=== PATIENT | male | born 1970 | race Caucasian/White ===

== ENCOUNTER 2016-02-26 14:22 | Emergency (ER) | payer OTHER ==
[2016-02-26 15:21] VITALS: BP 129/83
--- NOTE | 2016-02-26 15:42 | UC ---
Throat Pain/Nasal Jam HPI - HPI Summary HPI Summary: This is a 46 yo male with a h/o HTN and Hep C who presents with complaints of a ST x 3d. He was treated for an acute bronchitis with a Zpak. Symptoms resolved spontaneously. He has been able swallow. No assoc cough or SOB. No abdominal pain, n/v. No fevers. - History of Current Complaint Chief Complaint: UCGeneralIllness Stated Complaint: THROAT PAIN - Allergies/Home Medications Allergies/Adverse Reactions: Allergies Allergy/AdvReac Type Severity Reaction Status Date / Time Interferons Allergy Severe Difficulty Verified 02/26/16 15:14 Breathing/Wheezing PMH/Surg Hx/FS Hx/Imm Hx Endocrine History Of: Denies: Diabetes Cardiovascular History Of: Reports: Hypertension Denies: Congestive Heart Failure Respiratory History Of: Reports: Asthma Other History Of: Hepatitis C - Surgical History Surgical History: Yes Surgery Procedure, Year, and Place: hernia - Family History Known Family History: Negative: Hypertension, Diabetes - Social History Alcohol Use: None Alcohol Amount: recovering alcoholic since 2008 Substance Use Type: None Smoking Status (MU): Former Smoker Type: eCigarettes When Did the Patient Quit Smoking/Using Tobacco: 09/2014 Review of Systems Constitutional: Negative Skin: Negative Eyes: Negative ENT: Sore Throat Respiratory: Negative Cardiovascular: Negative Gastrointestinal: Negative Genitourinary: Negative Motor: Negative Neurovascular: Negative Musculoskeletal: Negative Neurological: Negative Psychological: Negative All Other Systems Reviewed And Are Negative: Yes Physical Exam Triage Information Reviewed: Yes Appearance: Well-Appearing Vital Signs: Initial Vital Signs Temp 97.7 F 02/26/16 15:16 Pulse 69 02/26/16 15:16 Resp 18 02/26/16 15:16 BP 129/83 02/26/16 15:16 Pulse Ox 97 02/26/16 15:16 Vital Signs Reviewed: Yes ENT Exam: Normal ENT: Positive: Normal ENT inspection, Pharynx normal, TMs normal. Negative: Pharyngeal erythema Neck: Positive: Enlarged Nodes @ - mildly enlarged submandibular lymph nodes Respiratory: Positive: Lungs clear, Normal breath sounds Cardiovascular: Positive: RRR, No Murmur Throat Pain/Nasal Course/Dx - Course Course Of Treatment: Patient has a benign exam. Likely represents a viral pharyngitis. Recommend symptomatic treatment. - Differential Dx/Diagnosis Differential Diagnosis/HQI/PQRI: Laryngitis, Pharyngitis, Tonsillitis, URI Provider Diagnoses: 1. Viral pharyngitis Discharge - Discharge Plan Condition: Stable Disposition: HOME Patient Education Materials: Pharyngitis (ED) Referrals: Terence Carlson MD [Primary Care Provider] - If Needed Additional Instructions: Activity: As tolerated Instructions: 1. This appears to be a viral process, antibiotics are not necessary 2. Use throat lozenges and gargle with salt water to help with the pain
== END 2016-02-26 16:06 | disposition home or self-care (01) ==
LOC: UCEAST 14:22
DX: J02.9 Acute pharyngitis, unspecified (principal); Z87.891 Personal history of nicotine dependence
CPT/HCPCS: 99212; G0463

== ENCOUNTER 2017-05-08 15:24 | Emergency (ER) | payer OTHER ==
[2017-05-08] MEDS ORDERED: Ondansetron INJ* 2 MG/ML VIAL IV ONE (16:43)
[2017-05-08] MEDS ORDERED: Morphine INJ* 4 MG/ML 1 ML CARPUJECT IV ONE (16:43)
[2017-05-08] MEDS ORDERED: Morphine INJ* 4 MG/ML 1 ML SYRINGE (NEW SYRINGE VERSION) ONE (16:49)
[2017-05-08] MEDS ORDERED: Morphine INJ* 4 MG/ML 1 ML SYRINGE (NEW SYRINGE VERSION) IV ONE (16:50)
[2017-05-08 16:51] LABS: ABS Basophils 0.1 10^3/ul (0-0.2); ABS Eosinophils 0.1 10^3/ul (0-0.6); ABS Lymphocytes 1.7 10^3/ul (1.0-4.8); ABS Monocytes 0.6 10^3/ul (0-0.8); ABS Neutrophils 7.1 10^3/ul (1.5-7.7); ABS Nucleated RBC 0 10^3/ul; Eosinophil % 0.6 % (0-6); Hematocrit 43 % (42-52); Hemoglobin 15.2 g/dl (14.0-18.0); Mean Corpuscular HGB Conc 35 g/dl (31-36); Mean Corpuscular Hemoglobin 29 pg (27-31); Mean Corpuscular Volume 84 fL (80-94); Mean Platelet Volume 7.9 um3 (7.4-10.4); Nucleated Red Blood Cells % 0.1; Platelet Count 227 10^3/ul (150-450); Red Blood Count 5.17 10^6/ul (4.0-5.4); Red Cell Distribution Width 14 % (10.5-15); White Blood Count 9.5 10^3/ul (3.5-10.8)
[2017-05-08 16:53] LABS: Urine Appearance Clear; Urine Blood Negative (Negative); Urine Color Straw; Urine Ketones Negative (Negative); Urine Protein Negative (Negative); Urine Specific Gravity 1.003 (1.010-1.030); Urine Urobilinogen Negative (Negative)
[2017-05-08 17:17] LABS: EGFR Non-African American 97.9 (>60)
[2017-05-08] MEDS ORDERED: Iohexol 350* (CONTRAST) 500 ML MDV IV ONE (17:36)
--- NOTE | 2017-05-08 17:36 | ED ---
Abdominal Pain/Male - HPI Summary HPI Summary: Patient is a 47-year-old male presenting to the ED with the chief complaint of tentative 10 severe abdominal pain which has been present 5 months. The area of concern is the upper middle quadrant, sparing the epigastric region and radiating diffusely to the bilateral lower quadrants with one episode of radiating to the chest and neck. History of high blood pressure. History of psych issues per patient. Takes BP medications and omeprazole daily. Endorses pain discretely over the area of a hernia repair 14 years ago. States the pain feels similar. Endorses constipation and nausea, denies vomiting or diarrhea. Denies any fevers, sweats, chills. Denies any heart palpitations or chest pain. Denies any upper back pain. Endorses pain to the bilateral kidneys , but denies any history of UTI or kidney stones. Endorses pain with urination which is intermittently and described as a burning sensation. Patient is a smoker. Previous EtOH abuse, last use 10 years ago. History of liver function disorder. - History of Current Complaint Chief Complaint: EDAbdPain Stated Complaint: ABD PAIN Time Seen by Provider: 05/08/17 16:08 Hx Obtained From: Patient Onset/Duration: Gradual Onset Timing: Constant Severity Initially: Moderate Severity Currently: Moderate Pain Intensity: 10 Pain Scale Used: 0-10 Numeric Location: Umbilical, Other - middle upper quadrant Radiates: No Aggravating Factor(s): Nothing Alleviating Factor(s): Nothing Associated Signs And Symptoms: Positive: Negative - Risk Factors Testicular Torsion: Negative Cardiac Risk Factors: Hypertension, Smoking - Allergies/Home Medications Allergies/Adverse Reactions: Allergies Allergy/AdvReac Type Severity Reaction Status Date / Time Interferons Allergy Difficulty Verified 05/08/17 15:34 Breathing/Wheezing PMH/Surg Hx/FS Hx/Imm Hx Previously Healthy: Yes Endocrine/Hematology History: Denies: Hx Diabetes Cardiovascular History: Reports: Hx Hypertension Denies: Hx Congestive Heart Failure Respiratory History: Reports: Hx Asthma - Surgical History Surgery Procedure, Year, and Place: hernia - Immunization History Hx Pertussis Vaccination: No Immunizations Up to Date: No Infectious Disease History: No Infectious Disease History: Reports: Hx Hepatitis - Hep C Denies: Traveled Outside the [place] in Last 30 Days - Family History Known Family History: Negative: Hypertension, Diabetes - Social History Occupation: Employed Full-time Lives: With Family Alcohol Use: None Alcohol Amount: Hx of EtOH Hx Substance Use: Yes Substance Use Type: Reports: Marijuana Hx Tobacco Use: Yes Smoking Status (MU): Current Every Day Smoker Type: eCigarettes Review of Systems Constitutional: Negative Negative: Fever, Chills, Fatigue Eyes: Negative Cardiovascular: Negative Negative: Shortness Of Breath, Cough Positive: Abdominal Pain, Nausea Positive: no symptoms reported, see HPI Negative: Arthralgia, Myalgia Neurological: Negative Positive: Anxious, Other - feels "losing my mind" sometimes - think i have "schizo" All Other Systems Reviewed And Are Negative: Yes Physical Exam Triage Information Reviewed: Yes Vital Signs On Initial Exam: Initial Vitals Temp Pulse Resp BP Pulse Ox 98.6 F 83 16 149/95 96 05/08/17 15:30 05/08/17 15:30 05/08/17 15:30 05/08/17 15:30 05/08/17 15:30 Vital Signs Reviewed: Yes Appearance: Positive: Well-Appearing, Well-Nourished Skin: Positive: Warm, Skin Color Reflects Adequate Perfusion Head/Face: Positive: Normal Head/Face Inspection Neck: Positive: Supple, No Lymphadenopathy Respiratory/Lung Sounds: Positive: Clear to Auscultation, Breath Sounds Present Cardiovascular: Positive: RRR, Pulses are Symmetrical in both Upper and Lower Extremities Abdomen Description: Positive: Other: - no masses present, no hernias present, pain discretely located over the middle upper quadrant. Negative: CVA Tenderness (R), CVA Tenderness (L), Hernia @, McBurney's Point Tenderness, Peritoneal Signs, Pulsatile Mass Musculoskeletal: Positive: Normal, Strength/ROM Intact Neurological: Positive: Speech Normal Psychiatric: Positive: Anxious AVPU Assessment: Alert Diagnostics - Vital Signs Vital Signs Temp Pulse Resp BP Pulse Ox 05/08/17 16:52 15 05/08/17 15:30 98.6 F 83 16 149/95 96 - Laboratory Lab Results: Lab Results 05/08/17 05/08/17 05/08/17 Range/Units 16:30 16:30 16:30 WBC 9.5 (3.5-10.8) 10^3/ul RBC 5.17 (4.0-5.4) 10^6/ul Hgb 15.2 (14.0-18.0) g/dl Hct 43 (42-52) % MCV 84 (80-94) fL MCH 29 (27-31) pg MCHC 35 (31-36) g/dl RDW 14 (10.5-15) % Plt Count 227 (150-450) 10^3/ul MPV 7.9 (7.4-10.4) um3 Neut % (Auto) 73.9 (38-83) % Lymph % (Auto) 18.0 L (25-47) % [place] % (Auto) 6.7 (0-7) % Eos % (Auto) 0.6 (0-6) % Baso % (Auto) 0.8 (0-2) % Absolute Neuts (auto) 7.1 (1.5-7.7) 10^3/ul Absolute Lymphs (auto) 1.7 (1.0-4.8) 10^3/ul Absolute Monos (auto) 0.6 (0-0.8) 10^3/ul Absolute Eos (auto) 0.1 (0-0.6) 10^3/ul Absolute Basos (auto) 0.1 (0-0.2) 10^3/ul Absolute Nucleated RBC 0 10^3/ul Nucleated RBC % 0.1 Sodium 139 (139-145) mmol/L Potassium 3.3 L (3.5-5.0) mmol/L Chloride 102 (101-111) mmol/L Carbon Dioxide 28 (22-32) mmol/L Anion Gap 9 (2-11) mmol/L BUN 7 (6-24) mg/dL Creatinine 0.84 (0.67-1.17) mg/dL Est GFR ( Amer) 126.0 (>60) Est GFR (Non-Af Amer) 97.9 (>60) BUN/Creatinine Ratio 8.3 (8-20) Glucose 100 (70-100) mg/dL Lactic Acid 1.2 (0.5-2.0) mmol/L Calcium 9.6 (8.6-10.3) mg/dL Total Bilirubin 0.60 (0.2-1.0) mg/dL AST 22 (13-39) U/L ALT 13 (7-52) U/L Alkaline Phosphatase 57 (34-104) U/L Troponin I 0.05 H* (<0.04) ng/mL C-Reactive Protein 13.53 H (< 5.00) mg/L Total Protein 7.5 (6.4-8.9) g/dL Albumin 4.2 (3.2-5.2) g/dL Globulin 3.3 (2-4) g/dL Albumin/Globulin Ratio 1.3 (1-3) Lipase 38 (11.0-82.0) U/L Urine Color Urine Appearance Urine pH (5-9) Ur Specific [place] (1.010-1.030) Urine Protein (Negative) Urine Ketones (Negative) Urine Blood (Negative) Urine Nitrate (Negative) Urine Bilirubin (Negative) Urine Urobilinogen (Negative) Ur Leukocyte Esterase (Negative) Urine Glucose (Negative) 05/08/17 Range/Units 16:30 WBC (3.5-10.8) 10^3/ul RBC (4.0-5.4) 10^6/ul Hgb (14.0-18.0) g/dl Hct (42-52) % MCV (80-94) fL MCH (27-31) pg MCHC (31-36) g/dl RDW (10.5-15) % Plt Count (150-450) 10^3/ul MPV (7.4-10.4) um3 Neut % (Auto) (38-83) % Lymph % (Auto) (25-47) % [place] % (Auto) (0-7) % Eos % (Auto) (0-6) % Baso % (Auto) (0-2) % Absolute Neuts (auto) (1.5-7.7) 10^3/ul Absolute Lymphs (auto) (1.0-4.8) 10^3/ul Absolute Monos (auto) (0-0.8) 10^3/ul Absolute Eos (auto) (0-0.6) 10^3/ul Absolute Basos (auto) (0-0.2) 10^3/ul Absolute Nucleated RBC 10^3/ul Nucleated RBC % Sodium (139-145) mmol/L Potassium (3.5-5.0) mmol/L Chloride (101-111) mmol/L Carbon Dioxide (22-32) mmol/L Anion Gap (2-11) mmol/L BUN (6-24) mg/dL Creatinine (0.67-1.17) mg/dL Est GFR ( Amer) (>60) Est GFR (Non-Af Amer) (>60) BUN/Creatinine Ratio (8-20) Glucose (70-100) mg/dL Lactic Acid (0.5-2.0) mmol/L Calcium (8.6-10.3) mg/dL Total Bilirubin (0.2-1.0) mg/dL AST (13-39) U/L ALT (7-52) U/L Alkaline Phosphatase (34-104) U/L Troponin I (<0.04) ng/mL C-Reactive Protein (< 5.00) mg/L Total Protein (6.4-8.9) g/dL Albumin (3.2-5.2) g/dL Globulin (2-4) g/dL Albumin/Globulin Ratio (1-3) Lipase (11.0-82.0) U/L Urine Color Straw Urine Appearance Clear Urine pH 7.0 (5-9) Ur Specific [place] 1.003 L (1.010-1.030) Urine Protein Negative (Negative) Urine Ketones Negative (Negative) Urine Blood Negative (Negative) Urine Nitrate Negative (Negative) Urine Bilirubin Negative (Negative) Urine Urobilinogen Negative (Negative) Ur Leukocyte Esterase Negative (Negative) Urine Glucose Negative (Negative) Result Diagrams: 05/08/17 16:30 05/08/17 16:30 Lab Statement: Any lab studies that have been ordered have been reviewed, and results considered in the medical decision making process. Abdominal Pain Fem Course/Dx - Course Course Of Treatment: Patient is evaluated for abdominal pain. He endorses pain into the middle upper quadrant 5 months which is been intermittent. He endorses constipation. He states he has had one episode of pain today with the pain radiated through the chest and up into the neck describing it as a "tearing " sensation. Vital signs are stable on arrival. Troponin is 0.05, this is never been high in his previous visits. I have discussed this with Dr. Denton who suggests a CTA alongside his CT abdomen/pelvis contrasted image to assess for hernia or mesh disruption. He is given Zofran and morphine with relief. Hernia repaired 14 years ago and has remained asymptomatic until 5 months ago. IMPRESSION: 1. No aortic aneurysm or evidence of acute aortic dissection. 2. No centrilobular pulmonary embolism. The more distal segmental pulmonary arteries are. less reliably evaluated due to image timing. 3. Appearance of the liver is compatible with cirrhosis. I discussed these findings with the patient. I have advised him to follow-up with GI, although I do not have a clear explanation for his pain. I've advised him to take Senokot and/or MiraLAX for his constipation symptoms. On recheck of his troponin, 0.00. Also EKG obtained which shows sinus bradycardia. I am not concerned with a PE as patient is not tachycardic, diaphoretic, and has low risk factors other than smoking history. I have given him strict return precautions and he understands these as it is explained to him. He voices no concerns at this time and will follow-up GI. - Diagnoses Differential Diagnosis/HQI/PQRI: Constipation Provider Diagnoses: Abdominal pain Discharge - Sign-Out/Discharge Documenting (check all that apply): Discharge - Discharge Plan Condition: Stable Disposition: HOME Patient Education Materials: Acute Abdominal Pain (ED) Referrals: Nba Shi MD [Medical Doctor] - Terence Carlson MD [Primary Care Provider] - Additional Instructions: Please follow up with Dr. Shi If symptoms worsen, return to the ED - Billing Disposition and Condition Condition: STABLE Disposition: HOME
[2017-05-08 19:32] VITALS: BP 129/72
--- NOTE | 2017-05-08 19:55 | RAD ---
INDICATION: Diffuse pain in the abdomen with radiation to the "neck and throat" since November. COMPARISON: CT abdomen pelvis dated September 03, 2015 TECHNIQUE: Multidetector CT angiography images of the chest, abdomen and pelvis were obtained from the lung apices to the ischial tuberosities following the injection of 100 mL of Omnipaque 350 intravenous contrast. The patient received oral contrast as well prior to imaging.. ANGIOGRAPHIC FINDINGS: The thoracic and abdominal aorta does not exhibit any pathologic aneurysmal dilatation or signs of acute dissection. There is calcified atherosclerosis at the lower abdominal aorta that extends into the bilateral common iliac arteries. Incidentally noted is a common hepatic artery that branches directly off of the aorta (axial image 121 of 176). There are no centrilobular pulmonary artery filling defects to indicate centrilobular pulmonary embolism. Determination of segmental branch filling defects is less reliable due to the timing of imaging. NON-ANGIOGRAPHIC FINDINGS: CHEST: The lungs are clear. There are no large pleural effusions. There is no mediastinal or hilar lymphadenopathy. The heart and major vascular structures are grossly normal in appearance. ABDOMEN & PELVIS: The service of the liver is nodular. There are no focal suspicious masses or lesions in the liver. The spleen, pancreas and adrenal glands are grossly normal in appearance. The gallbladder is normal. The kidneys are normal in appearance without focal mass, calcification or signs of hydronephrosis. There are contrast has progressed as far as the proximal transverse colon. The small and large bowel are not distended. The partially gas-filled appendix measuring 4 mm in diameter is identified in the right lower quadrant (image 54). Gas and stool seen throughout the length of the colon. There is no gross retroperitoneal or mesenteric lymphadenopathy. The pelvic viscera is normal in appearance. . There are no sinister bone lesions. IMPRESSION: 1. No aortic aneurysm or evidence of acute aortic dissection. 2. No centrilobular pulmonary embolism. The more distal segmental pulmonary arteries are less reliably evaluated due to image timing. 3. Appearance of the liver is compatible with cirrhosis.
== END 2017-05-08 20:21 | disposition home or self-care (01) ==
LOC: ED 15:24
DX: R10.9 Unspecified abdominal pain (principal); R11.0 Nausea; F17.210 Nicotine dependence, cigarettes, uncomplicated; Z86.79 Personal history of other diseases of the circulatory system
CPT/HCPCS: 36415; 71275; 74177; 80053; 81003; 83605; 83690; 84484; 85025; 86140; 93005; 96374; 96375; 99283; J2270; J2405; Q9967

== ENCOUNTER 2017-05-12 11:11 | Emergency (ER) | payer OTHER ==
[2017-05-12 11:55] LABS: ABS Basophils 0.1 10^3/ul (0-0.2); ABS Eosinophils 0.1 10^3/ul (0-0.6); ABS Lymphocytes 1.5 10^3/ul (1.0-4.8); ABS Monocytes 0.5 10^3/ul (0-0.8); ABS Neutrophils 3.2 10^3/ul (1.5-7.7); ABS Nucleated RBC 0 10^3/ul; Eosinophil % 2.1 % (0-6); Hematocrit 46 % (42-52); Lymphocyte % 27.6 % (25-47); Mean Corpuscular HGB Conc 35 g/dl (31-36); Mean Corpuscular Hemoglobin 29 pg (27-31); Mean Corpuscular Volume 84 fL (80-94); Mean Platelet Volume 8.2 um3 (7.4-10.4); Nucleated Red Blood Cells % 0.1; Platelet Count 219 10^3/ul (150-450); Red Blood Count 5.47 10^6/ul (4.0-5.4); Red Cell Distribution Width 14 % (10.5-15); White Blood Count 5.5 10^3/ul (3.5-10.8)
[2017-05-12 12:11] LABS: EGFR Non-African American 92.8 (>60)
--- NOTE | 2017-05-12 12:38 | ED ---
Psychiatric Complaint - HPI Summary HPI Summary: Pt here w/ complaint " I'm losing my mind". Over the past 5 months or so, he feels he's slipping back into old thought patterns that are mad, angry and aggressive. He states "If people piss me off, I want to punch them in the face "....discussed another scenario with a man at work he thought about "gutting" because he was angry with him. He has been able to implement self-control and not say these things to people or act on them but he's thinking them and afraid he may act on them. He reports he hears people say things and sometimes they deny saying these things - he's not sure if they're lying/playing a joke on him or if he's losing his mind. He's scared and reports a h/o ETOH from the age of 8 y.o. up until 10 years ago. Since being sober, he's been trying to "do it the mental health way" - follows w/ Sun[facility] and Rin [facility] - has been taking seroquel over the years and started buspar in an effort to reduce sx as of late however does not seem to be helping. He does admit he's been smoking marijuana - he feels like it helps but is aware that it could cause sx to be worse - becomes agitated when speaking about it. Also states "I can't figure out f I'm SI or HI...that's why I'm here". Lives w/ girlfriend who he reports is bipolar and doesn't understand anything he says - very frustrated. States "I'm rat shit house crazy but I'm sick of this"...wants to feel better and get back to work, normal life. "My head hurts from all the thoughts". When asked about trying a medication here to help reduce his fear/anxiety, he reports he felt like he was withdrawing from ETOH when he had klonopin in the past - does not want anything like this again. Does not recall any other meds he 's had in the past that hurt or were helpful. Smokes - does not want tobacco replacement at this time. Offered food but he does not want this now either. He has been drinking some gingerale since here. NOTE: he also admits to GI "issues" around the time this started - last BM was 4 days ago. Was seen here this past week for GI ISSUES and dx'd w/ constipation - recommended stool softener w/ miralax - he's not taken these as he doesn't want to get diarrhea. Has had associated sx of nausea w/ dry heaves almost daily - no nausea at this time. Has decreased appetite. - History Of Current Complaint Chief Complaint: EDMentalHealth Time Seen by Provider: 05/12/17 11:15 Hx Obtained From: Patient - Allergies/Home Medications Allergies/Adverse Reactions: Allergies Allergy/AdvReac Type Severity Reaction Status Date / Time Interferons Allergy Difficulty Verified 05/08/17 15:34 Breathing/Wheezing Home Medications: Home Medications Desvenlafaxine(NF) [Pristiq(NF)] 150 mg PO DAILY 05/12/17 [History Confirmed 03/30] Multivitamins/Minerals TAB* [Theragran/minerals TAB*] 1 tab PO DAILY 05/12/17 [ History Confirmed 05/12/17] Pantoprazole TAB (NF) [Protonix TAB (NF)] 40 mg PO DAILY 05/12/17 [History Confirmed 05/12/17] Simethicone TAB* [Mylicon TAB*] 125 mg PO QID 05/12/17 [History Confirmed ] busPIRone TAB* [Buspar TAB *] 15 mg PO BID 05/12/17 [History Confirmed 05/12/17] PMH/Surg Hx/FS Hx/Imm Hx Previously Healthy: No - ongoing constipation, GI "issues" x 5 months Endocrine/Hematology History: Denies: Hx Diabetes Cardiovascular History: Reports: Hx Hypertension Denies: Hx Congestive Heart Failure Respiratory History: Reports: Hx Asthma GI History: Reports: Hx Cirrhosis, Other GI Disorders - constipation Psychiatric History: Reports: Hx Anxiety, Hx Substance Abuse - ETOH -please no benzo's per pt - Surgical History Surgery Procedure, Year, and Place: hernia Infectious Disease History: No Infectious Disease History: Reports: Hx Hepatitis - Hep C Denies: Traveled Outside the [place] in Last 30 Days - Family History Known Family History: Negative: Hypertension, Diabetes - Social History Occupation: Employed Full-time - [employer] Lives: With Family - girlfriend Alcohol Use: None Alcohol Amount: Hx of EtOH - lsat drank in 2006 Hx Substance Use: Yes Substance Use Type: Reports: Marijuana - feels it helps mood but not lately Hx Tobacco Use: Yes Smoking Status (MU): Current Every Day Smoker Type: [place]ig[place] Review of Systems Constitutional: Negative Negative: Fever, Chills, Fatigue Eyes: Negative Negative: Photophobia, Blurred Vision, Diplopia, Drainage ENT: Negative Cardiovascular: Negative Respiratory: Negative Positive: Other - constipated - no nausea at this time. Negative: Abdominal Pain, Vomiting, Diarrhea, Nausea Negative: burning, dysuria, discharge, frequency, flank pain, hematuria, incontinence, pain, urgency Musculoskeletal: Negative Skin: Negative Positive: Headache - adimts he's had this his whole life Psychological: Other - agitated, auditory hallucinations, paranoia, SI and/or HI All Other Systems Reviewed And Are Negative: Yes Physical Exam Triage Information Reviewed: Yes Vital Signs On Initial Exam: Initial Vitals Temp Pulse Resp BP Pulse Ox 98.2 F 93 18 189/97 96 05/12/17 11:12 05/12/17 11:12 05/12/17 11:12 05/12/17 11:12 05/12/17 11:12 Vital Signs Reviewed: Yes Appearance: Positive: Well-Nourished - agitated, raises voice when speaking - swears to describe his feelings/emotions at times; cooperative but threatens " if I don't get better"..." If you guys don't do something"... Skin: Positive: Warm, Skin Color Reflects Adequate Perfusion, Dry - old healed scarred cross over forehead Head/Face: Positive: Normal Head/Face Inspection Eyes: Positive: Normal, EOMI, ALICIA, Conjunctiva Clear - anicteric sclera ENT: Positive: Hearing grossly normal Dental: Positive: Gross Decay/Caries @, Other - edentulous along mandible Neck: Positive: Supple, Nontender Respiratory/Lung Sounds: Positive: Clear to Auscultation, Breath Sounds Present Cardiovascular: Positive: Normal, RRR, S1, S2. Negative: Murmur, Rub, Leg Edema Left, Leg Edema Right Abdomen Description: Positive: Nontender, No Organomegaly, Soft Bowel Sounds: Positive: Present Musculoskeletal: Positive: Normal, Strength/ROM Intact Neurological: Positive: Normal, Sensory/Motor Intact, Alert, Oriented to Person Place, Time, CN Intact II-III Psychiatric: Positive: Anxious - agitated/angry but cooperative - HI w/ possible SI - auditory hallucinations? - paranoid Diagnostics - Vital Signs Vital Signs Temp Pulse Resp BP Pulse Ox 05/12/17 11:12 98.2 F 93 18 189/97 96 - Laboratory Lab Results: Lab Results 05/12/17 05/12/17 Range/Units 11:42 11:42 WBC 5.5 (3.5-10.8) 10^3/ul RBC 5.47 H (4.0-5.4) 10^6/ul Hgb 16.0 (14.0-18.0) g/dl Hct 46 (42-52) % MCV 84 (80-94) fL MCH 29 (27-31) pg MCHC 35 (31-36) g/dl RDW 14 (10.5-15) % Plt Count 219 (150-450) 10^3/ul MPV 8.2 (7.4-10.4) um3 Neut % (Auto) 58.1 (38-83) % Lymph % (Auto) 27.6 (25-47) % [place] % (Auto) 9.9 H (0-7) % Eos % (Auto) 2.1 (0-6) % Baso % (Auto) 2.3 H (0-2) % Absolute Neuts (auto) 3.2 (1.5-7.7) 10^3/ul Absolute Lymphs (auto) 1.5 (1.0-4.8) 10^3/ul Absolute Monos (auto) 0.5 (0-0.8) 10^3/ul Absolute Eos (auto) 0.1 (0-0.6) 10^3/ul Absolute Basos (auto) 0.1 (0-0.2) 10^3/ul Absolute Nucleated RBC 0 10^3/ul Nucleated RBC % 0.1 Sodium 136 L (139-145) mmol/L Potassium 3.3 L (3.5-5.0) mmol/L Chloride 103 (101-111) mmol/L Carbon Dioxide 26 (22-32) mmol/L Anion Gap 7 (2-11) mmol/L BUN 11 (6-24) mg/dL Creatinine 0.88 (0.67-1.17) mg/dL Est GFR ( Amer) 119.4 (>60) Est GFR (Non-Af Amer) 92.8 (>60) BUN/Creatinine Ratio 12.5 (8-20) Glucose 117 H (70-100) mg/dL Calcium 9.8 (8.6-10.3) mg/dL Total Bilirubin 0.40 (0.2-1.0) mg/dL AST 24 (13-39) U/L ALT 15 (7-52) U/L Alkaline Phosphatase 65 (34-104) U/L Total Protein 7.9 (6.4-8.9) g/dL Albumin 4.4 (3.2-5.2) g/dL Globulin 3.5 (2-4) g/dL Albumin/Globulin Ratio 1.3 (1-3) TSH Pending Salicylates Pending Acetaminophen Pending Serum Alcohol Pending Result Diagrams: 05/12/17 11:42 05/12/17 11:42 Lab Statement: Any lab studies that have been ordered have been reviewed, and results considered in the medical decision making process. Course/Dx - Course Course Of Treatment: Discussed case early on with Dr. Moreno - will avoid benzo' s and try thorazine 100mg, IM in the event pt's current GI issues are interfering with absorption. Pt agrees to IM's. Upon recheck of sx after medication, he report his head hurts less, emotionally he feels a little better and is tired. Inquired about amphetamine use (+ in urine) which he denies and states if someone laced his marijuana, he's going to kill them. Also requests to call his girlfriend as when he left the house this morning he told he was going fishing and if he wasn't back in time, he either went to the hospital (if he had enough courage) or he drove off a [place]nando - wasn't sure what he was going to do today. His labs are adequate otherwise to clear him for MHE. Chery Nunez MHE aware. UPDATE: lab called to clarify pt's urine does NOT contain amphetamines. Em from reports pt told her he has an appointment tomorrow morning with Rin Brock and he wants to go home - unfortunately we were unable to collaborate this appt stone/ Rin. His BP was low midday (most likely from thorazine) however recheck is WNL despite not taking anti-hypertensives today. His agitation and hyper/manic energy has improved from earlier today - he reports his head doesn't hurt with thoughts like it was. His labs were mostly WNL upon inital check other than mildy low K and sodium. Staff confirmed he has had a sandwich upon arrival and ate most of his lunch tray. Drank a gingerale and requested an OJ and tuna sandwich but these do not appear to have been consumed. Based on this intake and good BP w/ normal HR, pt does not require IV fluids or electrolyte replacement. He was witnessed urinating 1 x today and has been resting the remainder of the time. Would recommend IV fluids if vital signs indicate dehydration and/or he goes w/o eating or drinking or urinating in the next few hours. He is currently tired and reporting he wants to rest. He will stay overnight until psych can eval tomorrow as he has too many mental risk factors and lack of collaboration w/ rx'er to be d/c'd tonight. If he is open to trying a stool softener and/or miralax, will provide as he reports he's not moved his bowels in 4 days. WIll need to drink lots of fluids with these meds to aid in their effectiveness. Last ED visit was to evaluate ab sx - CT w/o obstruction. There is concern that his GI issues are triggering his change in mood as this happened around the same time - possibly interfering w/ medication absorbtion. Unsure if he has IBS or other GI dysfunction. Will add on some nutrition labs and have pt f/u w/ GI as directed at last visit (he's not been yet as his mood was the overpowering issue). SIgned out to Janelle Short PA-C in improved and stable condition. - Differential Dx/Clinical Impression Provider Diagnosis: Agitated, Paranoid, Auditory hallucination, Homicidal ideations, Suicidal ideation, Constipation Discharge - Sign-Out/Discharge Documenting (check all that apply): Sign-Out Patient Signing out patient TO: Janelle Short - Discharge Plan Condition: Improved - Billing Disposition and Condition Condition: IMPROVED
[2017-05-12] MEDS ORDERED: chlorproMAZINE INJ* 25 MG/ML 2 ML (50 MG) IM ONE (12:53)
[2017-05-12 13:18] LABS: Urine Appearance Clear; Urine Blood Negative (Negative); Urine Color Straw; Urine Ketones Negative (Negative); Urine Protein Negative (Negative); Urine Specific Gravity 1.006 (1.010-1.030); Urine Urobilinogen Negative (Negative)
[2017-05-12] MEDS ORDERED: NS 0.9% 1000 ML* 1,000 ML IV ONE (20:37)
[2017-05-12] MEDS ORDERED: Potassium Chlor TAB* 20 MEQ TAB.ER PO ONE (20:38)
--- NOTE | 2017-05-13 01:37 | PN ---
Progress Note - Progress Note Date of Service: 05/13/17 Note: Assumed care of patient at 8:30 PM. Patient is resting comfortably. He is eating and drinking well. He denies any need for medications lungs clear to auscultation bilaterally Regular rate and rhythm He does not appear anxious, and continues to appear fatigued This is likely due to his medication of Thorazine he received earlier He will be signed out to Dr. Smith He will be reevaluated in the morning to assess for risk factors and safe discharge
--- NOTE | 2017-05-13 07:00 | ED ---
Geoff Mckeon Tecjoon, scribed for Edil Smith MD on 05/13/17 at 0658 . Progress - Consult/PCP Time Called: 14:15 Course/Dx - Course Course Of Treatment: Patient is signed out to Dr. Choi at end of shift, pending MHE. - Diagnoses Provider Diagnoses: Agitated, Paranoid, Auditory hallucination, Homicidal ideations, Suicidal ideation, Constipation Discharge - Sign-Out/Discharge Documenting (check all that apply): Sign-Out Patient, Receiving Sign-Out Signing out patient TO: Curtis Choi Receiving patient FROM: Janelle Short - Discharge Plan Condition: Improved Discharge Disposition Comment: signed out to Jimbo Referrals: Terence Carlson MD [Primary Care Provider] - The documentation as recorded by the Geoff levine Tecjoon accurately reflects the service I personally performed and the decisions made by , Edil Smith MD.
--- NOTE | 2017-05-13 09:31 | ED ---
Progress - Progress Note Progress Note: Pt. evaluated at 0915. He is resting comfortable. Pt. has no complaints this morning. Vital signs are stable. Pt. has been evaluated by therapy and is pending psychiatric consultation. - Consult/PCP Time Called: 14:15 Course/Dx - Course Course Of Treatment: Pending evaluation and disposition. - Diagnoses Provider Diagnoses: Anxiety Discharge - Sign-Out/Discharge Documenting (check all that apply): Receiving Sign-Out Receiving patient FROM: Pierre Madrid - Discharge Plan Condition: Stable Disposition: HOME Referrals: Terence Carlson MD [Primary Care Provider] - - Billing Disposition and Condition Condition: STABLE Disposition: HOME
--- NOTE | 2017-05-13 10:26 | ED ---
Cain Mckeon Angela, scribed for Curtis Choi MD on 05/13/17 at 1011 . Progress - Progress Note Progress Note: Pt was signed out by Dr. Smith, pending disposition, awaiting MHE. Pt was evaluated by the mental [facility] and his case was reviewed by Dr. Hall. Dr. Hall recommends for the pt to be discharged home. Pt will follow up as an outpatient with [facility]. Pt will be discharged to home, in stable condition, with a diagnosis of anxiety. Course/Dx - Diagnoses Provider Diagnoses: Anxiety Discharge - Sign-Out/Discharge Documenting (check all that apply): Discharge - discharge to home, Receiving Sign-Out Receiving patient FROM: Edil Smith - Discharge Plan Condition: Stable Disposition: HOME Referrals: Terence Carlson MD [Primary Care Provider] - The documentation as recorded by the Cain levine Angela accurately reflects the service I personally performed and the decisions made by , Curtis Choi MD.
[2017-05-13 10:31] VITALS: BP 129/91
== END 2017-05-13 10:23 | disposition home or self-care (01) ==
LOC: ED 11:11
DX: K59.00 Constipation, unspecified (principal); R44.3 Hallucinations, unspecified; R45.1 Restlessness and agitation; R45.850 Homicidal ideations; R45.851 Suicidal ideations; I10 Essential (primary) hypertension; J45.909 Unspecified asthma, uncomplicated; F17.210 Nicotine dependence, cigarettes, uncomplicated
CPT/HCPCS: 36415; 80053; 80307; 80320; 80329; 81003; 84443; 85025; 96372; 99284; G0480

== ENCOUNTER 2018-10-16 12:13 | Emergency (ER) | payer SELFPAY ==
--- OUTSIDE RECORDS SUMMARY | 2018-10-16 12:21 | XMS REPORT | Summary of Care ---
:1970 Author Organization [facility] Address [address] [facility] [place] [address] Care Team Providers Name Role Phone Terence Carlson MD Primary Care Provider Reason for Visit Reason Comments Diarrhea w/ chills, hot flashes, sweats, abd pain, gas, reduced appetite, and fatigue since friday Encounter Details Date Type Department Care Team Description 10/09/2018 Office Visit [facility], Diarrhea, unspecified type (Primary Dx); Practice [facility] Nause[place]; [address] [place] [address] [phone] Allergies Active Allergy Reactions Severity Noted Date Comments Interferons Rash Medium 07/18/2015 Body rash documented as of this encounter (statuses as of 10/09/2018) Medications Medication Sig Dispensed Refills Start Date End Date Status divalproex sodium Take 1,000 mg by 0 Active (DEPAKOTE) 500 MG mouth DAILY. Oral Tab EC [place] Carbonate 600 Take 1,200 mg by 0 Active MG Oral Cap mouth DAILY. Currently 600mg daily, increasing to 900mg Multiple Take by mouth. 0 Active Vitamins-Minerals (MULTI COMPLETE PO) fluticasone (FLONASE) [place] 2 Sprays in 1 Bottle 5 01/15/2018 Active 50 MCG/ACT Nasal nose DAILY. SuspensionIndications : Vasomotor rhinitis ondansetron (ZOFRAN) Take 1 Tab by mouth 12 Tab 0 10/09/2018 Active 8 MG Oral EVERY EIGHT HOURS TabIndications: NEEDED (nausea). Nausea documented as of this encounter (statuses as of 10/09/2018) Active Problems Problem Noted Date Bipolar 1 disorder 05/23/2017 Overview: Admitted to [facility] 4/8-4-11/[address] Dorsey and has therapistYasmani Trigeminal neuralgia 09/21/2016 Overview: Neurologist Polo CHAVEZ 2009 lyrica failed treatment Arthralgia of left temporomandibular joint 09/21/2016 Bruxism (teeth grinding) 09/21/2016 Alcoholic cirrhosis of liver without ascites 07/18/2015 History of alcoholism 07/18/2015 Overview: Sober since 2005 attend alcoholics anonymous meeting History of drug abuse 07/18/2015 Chronic low back pain 07/18/2015 Lumbar disc disease 07/18/2015 Overview: MRI in past and physical therapy Essential hypertension 07/18/2015 GERD (gastroesophageal reflux disease) 07/18/2015 Chronic hepatitis C without hepatic coma 07/18/2015 Overview: S/p anti-tviral treatment with cure savoldi treatment Sustained viral response viral load negative July 2015 PTSD (post-traumatic stress disorder) 07/18/2015 Overview: Therapist [facility]eda [facility] intake pending July 2015 History of abuse and alcohol in Dad History homelessness documented as of this encounter (statuses as of 10/09/2018) Resolved Problems Problem Noted Date Resolved Date Abnormal gall bladder diagnostic imaging 11/03/2015 09/21/2016 Left-sided low back pain without sciatica 07/31/2015 08/22/2015 Other spondylosis with radiculopathy, lumbar region 07/31/2015 08/22/2015 History of depression 07/18/2015 08/22/2015 documented as of this encounter (statuses as of 10/09/2018) Immunizations Name Administration Dates Next Due Influenza (IM) Preservative Free 01/15/2018, 12/16/2016, 11/08/2015 documented as of this encounter Social History Tobacco Use Types Packs/Day Years Used Date Current Every Day Smoker Cigarettes 1.5 30 Smokeless Tobacco: Never Used Comments: Pt states he uses vape now Alcohol Use Drinks/Week oz/Week Comments No Sex Assigned at Date Recorded Not on file Job Start Date Occupation Industry Not on file Not on file Not on file Travel History Travel Start Travel End No recent travel history available. documented as of this encounter Last Filed Vital Signs Vital Sign Reading Time Taken Comments Blood Pressure 140/92 10/09/2018 1:11 PM EDT Pulse 55 10/09/2018 1:09 PM EDT Temperature 36.5 10/09/2018 1:09 PM EDT C (97.7 F) Respiratory Rate - - Oxygen Saturation 97% 10/09/2018 1:09 PM EDT Inhaled Oxygen Concentration - - Weight 64 kg (141 lb) 10/09/2018 1:09 PM EDT Height 174 cm (5' 8.5") 10/09/2018 1:09 PM EDT Body Mass Index 21.13 10/09/2018 1:09 PM EDT documented in this encounter Patient Instructions Patient InstructionsHanna Sandy FNP - 10/09/2018 1:00 PM EDTZofran as directed for nausea Imodium AD as needed for diarrhea G2 or Pedialyte may help dehydration Avoid sugar and dairy for a few days Call if symptoms persistElectronically signed by Hanna Sandy FNP at 2018 1:23 PM EDT documented in this encounter Progress Notes Hanna Sandy FNP - 10/09/2018 1:00 PM EDT PATIENT: Dima Otero : 1970 DATE OF SERVICE: 10/09/2018 CHIEF COMPLAINT: Chief Complaint Patient presents with Diarrhea w/ chills, hot flashes, sweats, abd pain, gas, reduced appetite, and fatigue since friday Subjective HISTORY OF PRESENT ILLNESS: Dima Otero is a 48-y.o. male. HPI GI sx x 5 days - diarrhea x 3 days, decreased appetite , vomited x 1. Chills No medications used. No recent travel of known sick contacts Past Medical History: Diagnosis Date Hernia of abdominal cavity hx of ventral and umbilical hernia repairs Liver disease Family History Problem Relation Age of Onset Respiratory Mother Alcohol/Drug Mother Psychiatry Mother Alcohol/Drug Father Psychiatry Father Alcohol/Drug Maternal Aunt Alcohol/Drug Maternal Uncle Alcohol/Drug Paternal Aunt Alcohol/Drug Paternal Uncle Thyroid Other Allergies No family history Arthritis No family history Asthma No family history Blood Disease No family history Cancer No family history Diabetes No family history Genetic No family history GI No family history Genitourinary () No family history Heart No family history High Cholesterol No family history Hypertension No family history Seizures No family history Stroke No family history Current Outpatient Medications Medication Sig divalproex sodium (DEPAKOTE) 500 MG Oral Tab EC Take 1,000 mg by mouth DAILY. fluticasone (FLONASE) 50 MCG/ACT Nasal Suspension [place] 2 Sprays in nose DAILY. [place] Carbonate 600 MG Oral Cap Take 1,200 mg by mouth DAILY. Currently 600mg daily, increasing to 900mg Multiple Vitamins-Minerals (MULTI COMPLETE PO) Take by mouth. ondansetron (ZOFRAN) 8 MG Oral Tab Take 1 Tab by mouth EVERY EIGHT HOURS NEEDED (nausea). No current facility-administered medications for this visit. Allergies Allergen Reactions Interferons Rash Body rash Social History Socioeconomic History Marital status: Single Spouse name: Not on file Number of children: Not on file Years of education: Not on file Highest education level: Not on file Occupational History Not on file Social Needs Financial resource strain: Not on file Food insecurity: Worry: Not on file Inability: Not on file Transportation needs: Medical: Not on file Non-medical: Not on file Tobacco Use Smoking status: Current Every Day Smoker Packs/day: 1.50 Years: 30.00 Pack years: 45.00 Types: Cigarettes Smokeless tobacco: Never Used Tobacco comment: Pt states he uses vape now Substance and Sexual Activity Alcohol use: No Drug use: Yes Types: Marijuana Sexual activity: Not Currently Lifestyle Physical activity: Days per week: Not on file Minutes per session: Not on file Stress: Not on file Relationships Social connections: Talks on phone: Not on file Gets together: Not on file Attends latter day service: Not on file Active member of club or organization: Not on file Attends meetings of clubs or organizations: Not on file Relationship status: Not on file Intimate partner violence: Fear of current or ex partner: Not on file Emotionally abused: Not on file Physically abused: Not on file Forced sexual activity: Not on file Other Topics Concern Back Care Not Asked Bike Helmet Not Asked Blood Transfusions Not Asked Caffeine Concern Not Asked Exercise Not Asked Hobby Hazards Not Asked International Travel Not Asked Service Not Asked Occupational Exposure Not Asked Seat Belt Not Asked Self-Exams Not Asked Sleep Concern Not Asked Special Diet Not Asked Stress Concern Not Asked Weight Concern Not Asked Social History Narrative Lives in [place], [place] Single no significant other 25 year old daughter Lives with cousin Unemployed 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 Negative for fever. HENT: Negative for congestion. Gastrointestinal: Positive for diarrhea and nausea. Negative for abdominal pain , blood in stool and vomiting. Genitourinary: Negative for dysuria. Musculoskeletal: Positive for myalgias. Skin: Negative for rash. Neurological: Positive for headaches. Negative for tingling. Objective PHYSICAL EXAM: VITALS: BP (!) 140/92 (BP Location: Left arm, Patient Position: Sitting) | Pulse 55 | Temp 97.7 F (36.5 C) | Ht 5' 8.5" (1.74 m) | Wt 141 lb ( 64 kg) | SpO2 97% | BMI 21.13 kg/m Bodymass index is 21.13 kg/m. Physical Exam Constitutional: He is oriented to person, place, and time. He appears well- developed and well-nourished. BP slightly elevated HENT: Head: Normocephalic and atraumatic. Right Ear: Tympanic membrane normal. Left Ear: Tympanic membrane normal. Mouth/Throat: Uvula is midline and oropharynx is clear and moist. Eyes: Pupils are equal, round, and reactive to light. EOM are normal. Neck: Normal range of motion. No JVD present. No thyromegaly present. Cardiovascular: Normal rate and regular rhythm. Pulmonary/Chest: Effort normal and breath sounds normal. Abdominal: Soft. He exhibits no distension and no mass. Bowel sounds are increased. There is no hepatosplenomegaly. There is no tenderness. There is no rigidity, no rebound and no guarding. No hernia. Lymphadenopathy: He has no cervical adenopathy. Neurological: He is alert and oriented to person, place, and time. No cranial nerve deficit or sensory deficit. Skin: Skin is warm and dry. He is not diaphoretic. No cyanosis. No pallor. Vitals reviewed. ASSESSMENT / IMPRESSION: ICD-9-CM ICD-10-CM 1. Diarrhea, unspecified type 787.91 R19.7 2. Nausea 787.02 R11.0 ondansetron (ZOFRAN) 8 MG Oral Tab 3. Viral illness 079.99 B34.9 Plan Zofran as directed for nausea Imodium AD as needed for diarrhea G2 or Pedialyte may help dehydration Avoid sugar and dairy for a few days Call if symptoms persist Author: JOLANTA Nguyen 10/09/2018 13:29 documented in this encounter Plan of Treatment Health Maintenance Due Date Last Done Comments PNEUMOCOCCAL 0-64 YRS (1 of 1 02/12/1976 - PPSV23) LIPID DISORDER SCREENING 02/12/1988 INFLUENZA VACCINE (#1) 2018 01/15/2018, 12/16/2016, 11/08/2015 DEPRESSION SCREENING 10/10/2019 10/09/2018 COLONOSCOPY SCREENING 01/07/2022 01/07/2017 HPV IMMUNIZATION SERIES Aged Out No longer eligible based on patient's age to complete this topic MENINGOCOCCAL VACCINE IMM Aged Out No longer eligible based on patient's age to complete this topic documented as of this encounter Goals Goal Patient Goal Associated Recent Patient-Stated? Author Type Problems Progress Blood Pressure Blood Pressure 140/92 No Aldo, < 140/90 (10/09/2018 Terence Rubio, 1:11 PM EDT) Note: This is an individualized treatment (blood pressure) goal for Dima Otero: Displayed above (on the left) is your goal for blood pressure control. Your most recent blood pressure is also shown above, on the right. You should try to achieve blood pressures that are lower than your goal listed above (on the left). Weight loss vs. 18 mo Lifestyle 53 (10/09/2018 1:09 PM EDT) Ramy Aponte DO max (lbs) >= 10 Note: This is an individualized lifestyle goal for Dima Otero: Your body mass index (BMI) is more than 30. You should lose weight. A reasonable starting goal is to lose 10 pounds. Displayed above is how many pounds you have lost thus far towards your 10 pound weight loss goal. Take all prescribed medications as Self-management Terence Gonzalez MD directed Note: This is an individualized self-management goal for Dima Otero: Please take all prescribed medications as directed. 1. Do not skip doses. If you cannot afford your medications, talk with your doctor. 2. Use a pill reminder system such as a pill box if needed. Your pharmacist can help you with this. 3. Contact your Pharmacy 5 days before your medication runs out. If you cannot take your medications for any reasons, talk with your doctor. 4. Please bring all of your medication bottles and inhalers (or a list of all your medications/inhalers) with you to every visit. Potential barriers to meeting all of your care plan goals will continue to be addressed on an ongoing basis. documented as of this encounter Results Not on filedocumented in this encounter Visit Diagnoses Diagnosis Diarrhea, unspecified type - Primary Nausea Nausea alone Viral illness Unspecified viral infection, in conditions classified elsewhere and of unspecified site documented in this encounter
[2018-10-16 12:23] VITALS: BP 146/91
--- NOTE | 2018-10-16 12:28 | UC ---
UC General HPI - HPI Summary HPI Summary: Pleasant 48 yo gentleman c/o anxiety and chills and obstipation. Last bm was Wed (today is Fri), prior to that BM one week ago. But reports that BM have been sparce at best. Afraid to take otc x-lax or similar b/c he heard it is dangerous. Has taken miralax in the remote past, has done ok with it. Has been having anxiety and hard time sleeping, reports has sleeping aids, but as been using otc nyquil. States has had approx 50lbs weight loss over the last several months. Not intentional. Thinks weight loss is related to anxiety. Does not think he needs to be admitted for mental health. No fever. No n/v. No melena / brbpr. No urinary sx. No rash. Takes several medications, including depakote and lithium, but has not seen doctor(s) that have prescribed it in a long time. + anxiety. No cp / sob. No urinary sx. Denies suicidal / homicidal ideation. - History of Current Complaint Chief Complaint: UCGeneralIllness Stated Complaint: CHILLS BOWEL ISSUE HAVE NOT SLEPT Time Seen by Provider: 10/16/18 12:26 Hx Obtained From: Patient Pain Intensity: 0 - Allergy/Home Medications Allergies/Adverse Reactions: Allergies Allergy/AdvReac Type Severity Reaction Status Date / Time Interferons Allergy Difficulty Verified 10/16/18 12:24 Breathing/Wheezing Home Medications: Home Medications Divalproex ER TAB(*) [Depakote ER TAB(*)] 1,000 mg PO DAILY 10/16/18 [History Confirmed 10/16/18] [place] Carbonate [[place] Carbonate 300 mg cap] 1 tab PO DAILY 10/16/18 [ History Confirmed 10/16/18] PMH/Surg Hx/FS Hx/Imm Hx Previously Healthy: Yes Other History Of: Hepatitis C - Surgical History Surgical History: Yes Surgery Procedure, Year, and Place: hernia x2 - Family History Known Family History: Positive: Other - mental illness and substance abuse Negative: Hypertension, Diabetes - Social History Alcohol Use: None Alcohol Amount: Hx of EtOH - lsat drank in 2006 Substance Use Type: None Smoking Status (MU): Heavy Every Day Tobacco Smoker Type: [place] When Did the Patient Quit Smoking/Using Tobacco: 09/2014 Review of Systems All Other Systems Reviewed And Are Negative: Yes Constitutional: Positive: Other - see hpi Skin: Positive: Other - see hpi Eyes: Positive: Negative ENT: Positive: Other - see hpi Respiratory: Positive: Other - see hpi Cardiovascular: Positive: Other - see hpi Gastrointestinal: Positive: Other - see hpi Genitourinary: Positive: Other - see hpi Motor: Positive: Other - see hpi Neurovascular: Positive: Other - see hpi Musculoskeletal: Positive: Other: - see hpi Neurological: Positive: Other - see hpi Psychological: Positive: Anxious Is Patient Immunocompromised?: No Physical Exam Triage Information Reviewed: Yes Appearance: Thin Vital Signs: Initial Vital Signs Temp 98.1 F 10/16/18 12:20 Pulse 65 10/16/18 12:20 Resp 16 10/16/18 12:20 BP 146/91 10/16/18 12:20 Pulse Ox 100 10/16/18 12:20 Vital Signs Reviewed: Yes Eye Exam: Normal ENT Exam: Normal Neck exam: Normal Respiratory Exam: Normal Respiratory: Positive: Chest non-tender, Lungs clear, Normal breath sounds, No respiratory distress, No accessory muscle use Cardiovascular Exam: Normal Cardiovascular: Positive: RRR, Pulses Normal, Brisk Capillary Refill Abdominal Exam: Other - thin Abdomen Description: Positive: Nontender Musculoskeletal Exam: Normal - gait steady, moves x 4 exts Neurological Exam: Normal - grossly nonfocal with the exception of obstipation c /o Psychological Exam: Normal - conversing easily and appropriately. NAD. Nontoxic general. Course/Dx - Course Course Of Treatment: Takes lithium and depakote. Reports that he has not had these levels checked in a very long time. Also notes a hx of approx 50# weight loss (not trying) over the last few months. Thinks anxiety related but not sure. Will check blood work (see orders). I spoke with Hanna Stapleton NP at [place] (but apparently Mr. Otero usually sees Dr. Carlson - she will relay message). Mr. Otero will need to call [facility] to arrange f/u appt for check up and results review. Re obstipation. Last BM was Wed (today is Fri), but prior bm was one week ago Fri. He will start otc Miralax (reports that he has taken miralax in the past, and it has worked). Aware to call [facility] for f/u appt. Declines SI / HI. Also reports that he does not think he needs to be admitted to the hospital for mental health issues. Questions as posed answered to the best of my ability. - Diagnoses Provider Diagnosis: Weight loss, Obstipation Discharge ED - Sign-Out/Discharge Documenting (check all that apply): Patient Departure All imaging exams completed and their final reports reviewed: No Studies - Discharge Plan Condition: Stable Disposition: HOME Patient Education Materials: Malnutrition (DC), Obstipation (ED) Referrals: Terence Carlson MD [Primary Care Provider] - Additional Instructions: Call [facility] TODAY to schedule an appointment for next week (Dr. Carlson) if possible. Please follow up with your psychiatrist regarding medications. Please go to the Emergency Department for worse or new problems in the meantime. Hydrate. Eat well, including protein. Consider MIRALAX (generic ok) for constipation / obstipation. Blood work today. - Billing Disposition and Condition Condition: STABLE Disposition: Home
[2018-10-16 19:02] LABS: ABS Basophils 0.1 10^3/ul (0-0.2); ABS Eosinophils 0.2 10^3/ul (0-0.6); ABS Lymphocytes 1.8 10^3/ul (1.0-4.8); ABS Monocytes 0.5 10^3/ul (0-0.8); ABS Neutrophils 3.4 10^3/ul (1.5-7.7); Eosinophil % 3.8 %; Hematocrit 45 % (42-52); Hemoglobin 15.4 g/dL (14.0-18.0); Lymphocyte % 30.4 %; Mean Corpuscular HGB Conc 34 g/dL (31-36); Mean Corpuscular Hemoglobin 32 pg (27-31); Mean Corpuscular Volume 93 fL (80-94); Mean Platelet Volume 9.8 fL (7.4-10.4); Nucleated Red Blood Cells % 0.1; Platelet Count 200 10^3/uL (150-450); Red Blood Count 4.87 10^6 /uL (4.18-5.48); Red Cell Distribution Width 13 % (10-15)
[2018-10-16 19:12] LABS: Lithium 1.02 mmol/L (0.6-1.2)
[2018-10-16 19:21] LABS: Albumin 4.4 g/dL (3.2-5.2); Calcium 10.8 mg/dL (8.6-10.3); Potassium 3.9 mmol/L (3.5-5.0); Total Bilirubin 0.9 mg/dL (0.2-1.0)
[2018-10-16 19:27] LABS: Albumin/Globulin Ratio 1.6 (1-3); EGFR African American 111.8 (>60); EGFR Non-African American 92.4 (>60); Globulin 2.8 g/dL (2-4); Total Protein 7.2 g/dL (6.4-8.9)
--- NOTE | 2018-10-17 07:38 | UC ---
- Progress Note Progress Note: please contact patient Calcium slightly elevated and should be followed up. Course/Dx - Diagnoses Provider Diagnoses: Weight loss, Obstipation Discharge ED - Sign-Out/Discharge Documenting (check all that apply): Post-Discharge Follow Up All imaging exams completed and their final reports reviewed: No Studies - Discharge Plan Condition: Stable Disposition: HOME Patient Education Materials: Malnutrition (DC), Obstipation (ED) Referrals: Terence Carlson MD [Primary Care Provider] - Additional Instructions: Call [facility] TODAY to schedule an appointment for next week (Dr. Carlson) if possible. Please follow up with your psychiatrist regarding medications. Please go to the Emergency Department for worse or new problems in the meantime. Hydrate. Eat well, including protein. Consider MIRALAX (generic ok) for constipation / obstipation. Blood work today. - Billing Disposition and Condition Condition: STABLE Disposition: Home
== END 2018-10-16 13:20 | disposition home or self-care (01) ==
LOC: UCEAST 12:13
DX: R63.4 Abnormal weight loss (principal); K59.00 Constipation, unspecified; E83.52 Hypercalcemia; F41.9 Anxiety disorder, unspecified; F17.290 Nicotine dependence, other tobacco product, uncomplicated
CPT/HCPCS: 36415; 80053; 80164; 80178; 85025; 99211; G0463

== ENCOUNTER 2019-11-25 17:26 | Inpatient (IN) ==
[2019-11-25 18:51] LABS: ABS Basophils 0.1 10^3/ul (0-0.2); ABS Lymphocytes 1.6 10^3/ul (1.0-4.8); ABS Monocytes 0.8 10^3/ul (0-0.8); ABS Neutrophils 4.8 10^3/ul (1.5-7.7); Eosinophil % 0.6 %; Hematocrit 43 % (42-52); Hemoglobin 14.7 g/dL (14.0-18.0); Lymphocyte % 21.9 %; Mean Corpuscular HGB Conc 34 g/dL (31-36); Mean Corpuscular Hemoglobin 30 pg (27-31); Mean Corpuscular Volume 86 fL (80-94); Mean Platelet Volume 8.4 fL (7.4-10.4); Platelet Count 267 10^3/uL (150-450); Red Blood Count 4.99 10^6 /uL (4.18-5.48); Red Cell Distribution Width 14 % (10-15); White Blood Count 7.3 10^3/uL (3.5-10.8)
[2019-11-25 19:05] LABS: ALT 41 U/L (7-52); AST 73 U/L (13-39); Albumin 4.7 g/dL (3.2-5.2); Albumin/Globulin Ratio 1.3 (1-3); Alkaline Phosphatase 76 U/L (34-104); Anion Gap 10 mmol/L (2-11); BUN/Creatinine Ratio 11.9 (8-20); Blood Urea Nitrogen 13 mg/dL (6-24); CO2 Carbon Dioxide 24 mmol/L (22-32); Calcium 10.6 mg/dL (8.6-10.3); Chloride 102 mmol/L (101-111); EGFR Non-African American 71.9 (>60); Globulin 3.7 g/dL (2-4); Glucose 117 mg/dL (70-100); Sodium 136 mmol/L (135-145); Total Protein 8.4 g/dL (6.4-8.9)
[2019-11-25 19:24] LABS: Urine Appearance Clear; Urine Bilirubin Negative (Negative); Urine Blood Negative (Negative); Urine Color Yellow; Urine Glucose Negative (Negative); Urine Ketones 1+ (Negative); Urine Nitrite Negative (Negative); Urine Protein 2+(100 mg/dL) (Negative); Urine Specific Gravity 1.012 (1.010-1.030); Urine Urobilinogen Negative (Negative)
[2019-11-25 19:26] LABS: Urine Benzodiazepine Screen None Detected (None Detect); Urine Cannabinoids Screen None Detected (None Detect); Urine Opiates Screen None Detected (None Detect)
[2019-11-25 19:41] LABS: Acetaminophen < 15 mcg/mL; Alcohol, S < 10 mg/dL (<10); Salicylate < 2.50 mg/dL (<30)
[2019-11-25 19:45] LABS: Urine Bacteria Absent (Absent); Urine Red Blood Cell Trace(0-2/hpf) (Absent); Urine Squamous Epithelial Cell Present (Absent); Urine White Blood Cell 2+(11-20/hpf) (Absent)
[2019-11-25 19:53] LABS: TSH Ultra Thyroid Stim Horm 0.63 mcIU/mL (0.34-5.60)
[2019-11-26 03:37] LABS: Lithium 0.99 mmol/L (0.6-1.2); Valproic Acid < 13.0 mcg/mL (50-100)
[2019-11-26] MEDS ORDERED: Al Hydrox/Mg Hydrox/Simet LIQ 30 ML UDC PO PRN (03:53)
[2019-11-26] MEDS ORDERED: Nicotine GUM 2MG FRUIT FLAVOR PO PRN (04:00)
[2019-11-26] MEDS ORDERED: Albuterol HFA INHALER 8 gm MDI INH PRN (10:22)
[2019-11-26] MEDS: Vitamin THERAPEUTIC TAB PO SCH (13:58)
[2019-11-26] MEDS: Nicotine PATCH 14 MG/24 HR PATCH TRANSDERM SCH (14:53)
[2019-11-26] MEDS: HYDROcodone/ACETAMIN 5/325 mg TAB PO PRN (18:31)
[2019-11-27] MEDS: Vitamin THERAPEUTIC TAB PO SCH (07:49)
[2019-11-27] MEDS: HYDROcodone/ACETAMIN 5/325 mg TAB PO PRN ×3 (07:51→21:54)
[2019-11-27] MEDS: Nicotine PATCH 14 MG/24 HR PATCH TRANSDERM SCH (07:51)
[2019-11-27 08:49] LABS: HDL Cholesterol 31.3 mg/dL
[2019-11-28] MEDS: Vitamin THERAPEUTIC TAB PO SCH (08:40)
[2019-11-28] MEDS: Nicotine PATCH 14 MG/24 HR PATCH TRANSDERM SCH (08:40)
[2019-11-28] MEDS: HYDROcodone/ACETAMIN 5/325 mg TAB PO PRN ×3 (08:42→20:30)
[2019-11-28] MEDS: Magic MouthWash2-BEN/MAAL/LIDO/NYST 240 ML BTL (alt formulation) SWISH SPIT PRN (20:32)
[2019-11-29] MEDS: Nicotine PATCH 14 MG/24 HR PATCH TRANSDERM SCH (07:41)
[2019-11-29] MEDS: Vitamin THERAPEUTIC TAB PO SCH (08:25)
[2019-11-29] MEDS: HYDROcodone/ACETAMIN 5/325 mg TAB PO PRN ×2 (08:51→17:42)
[2019-11-30] MEDS: Vitamin THERAPEUTIC TAB PO SCH (08:35)
[2019-11-30] MEDS: Nicotine PATCH 14 MG/24 HR PATCH TRANSDERM SCH (08:37)
[2019-11-30] MEDS: HYDROcodone/ACETAMIN 5/325 mg TAB PO PRN ×3 (10:08→20:44)
[2019-11-30] MEDS: Senna TAB 8.6 mg TAB PO SCH (22:04)
[2019-12-01] MEDS: Vitamin THERAPEUTIC TAB PO SCH (08:30)
[2019-12-01] MEDS: Nicotine PATCH 14 MG/24 HR PATCH TRANSDERM SCH (08:33)
[2019-12-01] MEDS: HYDROcodone/ACETAMIN 5/325 mg TAB PO PRN ×3 (11:16→19:44)
[2019-12-01 14:28] LABS: ABS Basophils 0.1 10^3/ul (0-0.2); ABS Eosinophils 0.4 10^3/ul (0-0.6); ABS Lymphocytes 1.9 10^3/ul (1.0-4.8); ABS Monocytes 0.6 10^3/ul (0-0.8); ABS Neutrophils 2.2 10^3/ul (1.5-7.7); Eosinophil % 7.1 %; Hematocrit 37 % (42-52); Hemoglobin 12.1 g/dL (14.0-18.0); Lymphocyte % 36.8 %; Mean Corpuscular HGB Conc 33 g/dL (31-36); Mean Corpuscular Hemoglobin 30 pg (27-31); Mean Corpuscular Volume 91 fL (80-94); Mean Platelet Volume 9.8 fL (7.4-10.4); Nucleated Red Blood Cells % 0.2; Platelet Count 178 10^3/uL (150-450); Red Blood Count 4.02 10^6 /uL (4.18-5.48); Red Cell Distribution Width 14 % (10-15); White Blood Count 5.1 10^3/uL (3.5-10.8)
[2019-12-01 14:51] LABS: Lithium 1.08 mmol/L (0.6-1.2)
[2019-12-01 14:53] LABS: Albumin 3.4 g/dL (3.2-5.2); Albumin/Globulin Ratio 1.2 (1-3); BUN/Creatinine Ratio 18.7 (8-20); Calcium 9.6 mg/dL (8.6-10.3); EGFR African American 107.1 (>60); EGFR Non-African American 88.6 (>60); Globulin 2.8 g/dL (2-4); Potassium 4.4 mmol/L (3.5-5.0); Total Bilirubin 0.2 mg/dL (0.2-1.0); Total Protein 6.2 g/dL (6.4-8.9)
[2019-12-01] MEDS: Senna TAB 8.6 mg TAB PO SCH (21:21)
[2019-12-02] MEDS: Nicotine PATCH 14 MG/24 HR PATCH TRANSDERM SCH (08:02)
[2019-12-02] MEDS: Vitamin THERAPEUTIC TAB PO SCH (08:04)
[2019-12-02] MEDS: HYDROcodone/ACETAMIN 5/325 mg TAB PO PRN ×2 (14:12→18:24)
[2019-12-02] MEDS: Magic MouthWash2-BEN/MAAL/LIDO/NYST 240 ML BTL (alt formulation) SWISH SPIT PRN (15:14)
[2019-12-02] MEDS: Senna TAB 8.6 mg TAB PO SCH (20:14)
[2019-12-03] MEDS: HYDROcodone/ACETAMIN 5/325 mg TAB PO PRN ×3 (06:59→19:07)
[2019-12-03] MEDS: Nicotine PATCH 14 MG/24 HR PATCH TRANSDERM SCH (08:30)
[2019-12-03] MEDS: Vitamin THERAPEUTIC TAB PO SCH (08:30)
[2019-12-03] MEDS: Magic MouthWash2-BEN/MAAL/LIDO/NYST 240 ML BTL (alt formulation) SWISH SPIT PRN (15:22)
[2019-12-03] MEDS: Senna TAB 8.6 mg TAB PO SCH (21:18)
[2019-12-04] MEDS: HYDROcodone/ACETAMIN 5/325 mg TAB PO PRN ×3 (08:21→21:53)
[2019-12-04] MEDS: Vitamin THERAPEUTIC TAB PO SCH (08:22)
[2019-12-04] MEDS: Nicotine PATCH 14 MG/24 HR PATCH TRANSDERM SCH (08:23)
[2019-12-04] MEDS: Magic MouthWash2-BEN/MAAL/LIDO/NYST 240 ML BTL (alt formulation) SWISH SPIT PRN (15:34)
[2019-12-04] MEDS: Senna TAB 8.6 mg TAB PO SCH (21:52)
[2019-12-05] MEDS: Magic MouthWash2-BEN/MAAL/LIDO/NYST 240 ML BTL (alt formulation) SWISH SPIT PRN (01:25)
[2019-12-05] MEDS: HYDROcodone/ACETAMIN 5/325 mg TAB PO PRN ×4 (03:03→18:17)
[2019-12-05] MEDS: Nicotine PATCH 14 MG/24 HR PATCH TRANSDERM SCH (08:57)
[2019-12-05] MEDS: Vitamin THERAPEUTIC TAB PO SCH (08:58)
[2019-12-05] MEDS: Senna TAB 8.6 mg TAB PO SCH (20:13)
[2019-12-06] MEDS: HYDROcodone/ACETAMIN 5/325 mg TAB PO PRN ×2 (04:37→12:12)
[2019-12-06] MEDS: Nicotine PATCH 14 MG/24 HR PATCH TRANSDERM SCH (07:55)
[2019-12-06] MEDS: Vitamin THERAPEUTIC TAB PO SCH (07:57)
[2019-12-06 12:38] VITALS: BP 131/80
== END 2019-12-06 17:00 | disposition home health service (06) | DRG 753 ==
LOC: ED 17:26 → BSU 11-26 02:57
PROVIDERS: ADMIT Psychiatry & Neurology Psychiatry; ATTEND Psychiatry & Neurology Psychiatry

== ENCOUNTER 2020-06-05 13:55 | Inpatient (IN) ==
[2020-06-05] MEDS ORDERED: Albuterol/Ipratropium NEB.SOL (2.5/0.5 MG) 3 ML NEB.SOLN INH PRN (18:27)
[2020-06-05 18:36] LABS: ABS Lymphocytes 0.4 10^3/ul (1.0-4.8); ABS Monocytes 0.2 10^3/ul (0-0.8); ABS Neutrophils 6.7 10^3/ul (1.5-7.7); Hematocrit 31 % (42-52); Hemoglobin 10.5 g/dL (14.0-18.0); Lymphocyte % 5.8 %; Mean Corpuscular HGB Conc 34 g/dL (31-36); Mean Corpuscular Hemoglobin 30 pg (27-31); Mean Corpuscular Volume 88 fL (80-94); Platelet Count 308 10^3/uL (150-450); Red Cell Distribution Width 14 % (10-15); White Blood Count 7.3 10^3/uL (3.5-10.8)
[2020-06-05 18:42] LABS: INR 1.37 (0.82-1.09)
[2020-06-05 18:52] LABS: Calcium 8.5 mg/dL (8.6-10.3); EGFR African American 208.2 (>60); Potassium 3.2 mmol/L (3.5-5.0); Total Bilirubin 0.3 mg/dL (0.2-1.0)
[2020-06-05] MEDS ORDERED: Potassium Chlor 20 meq TAB.ER PO ONE (18:58)
[2020-06-05 20:00] LABS: Phosphorus 2.2 mg/dL (2.5-5.0)
[2020-06-05] MEDS: KCL 10 MEQ/50 ML IVPREMIX 10 MEQ/50 ML BAG IV SCH (20:15)
[2020-06-05] MEDS: Senna TAB 8.6 mg TAB PO SCH (20:23)
[2020-06-05] MEDS: Dexamethasone IV 4 MG/ML VIAL 1 ml VIAL IV SLOW PU SCH (20:27)
[2020-06-05] MEDS: Enoxaparin 40 MG/0.4 ML SYR SUBCUT SCH (20:27)
[2020-06-05] MEDS ORDERED: Potassium Phosphate IV 15 MMOLE in NS 0.9% 250 ml 250 ML IVPB ONE (22:00)
[2020-06-05 22:37] LABS: Lithium < 0.10 mmol/L (0.6-1.2)
[2020-06-06 05:12] LABS: ABS Lymphocytes 0.7 10^3/ul (1.0-4.8); ABS Monocytes 0.4 10^3/ul (0-0.8); ABS Neutrophils 4.6 10^3/ul (1.5-7.7); Hematocrit 29 % (42-52); Lymphocyte % 12.6 %; Mean Corpuscular HGB Conc 35 g/dL (31-36); Mean Corpuscular Hemoglobin 30 pg (27-31); Mean Corpuscular Volume 87 fL (80-94); Mean Platelet Volume 7.7 fL (7.4-10.4); Platelet Count 261 10^3/uL (150-450); Red Blood Count 3.35 10^6 /uL (4.18-5.48); Red Cell Distribution Width 14 % (10-15); White Blood Count 5.7 10^3/uL (3.5-10.8)
[2020-06-06 05:29] LABS: Calcium 8.4 mg/dL (8.6-10.3); EGFR African American 183.1 (>60); EGFR Non-African American 151.3 (>60); Magnesium 2.1 mg/dL (1.9-2.7); Phosphorus 4.4 mg/dL (2.5-5.0); Potassium 3.6 mmol/L (3.5-5.0)
[2020-06-06 05:32] LABS: Troponin I 0.01 ng/mL (<0.03)
[2020-06-06] MEDS ORDERED: Potassium Chlor 20 meq TAB.ER PO ONE (05:38)
[2020-06-06] MEDS ORDERED: Lactated Ringers 1000 ml BAG 1,000 ML IV SCH (06:00)
[2020-06-06] MEDS: KCL 10 MEQ/50 ML IVPREMIX 10 MEQ/50 ML BAG IV SCH ×4 (06:49→10:58)
[2020-06-06] MEDS: Dexamethasone IV 4 MG/ML VIAL 1 ml VIAL IV SLOW PU SCH ×2 (08:29→20:57)
[2020-06-06] MEDS ORDERED: Piperacillin/Tazobac ADVAN 3.375 GM in NS 0.9% 100 ml BAG 100 ML IV ONE (09:02)
[2020-06-06] MEDS ORDERED: Zosyn per Pharmacy NOTE FOLLOW UP SCH (10:00)
[2020-06-06] MEDS: Pantoprazole VIAL 40 MG VIAL IV SCH (10:18)
[2020-06-06] MEDS: ZOSYN 3.375 GM Q8H per EXTENDED INFUSION IV SCH ×2 (13:03→20:57)
[2020-06-06] MEDS: Senna TAB 8.6 mg TAB PO SCH (20:52)
[2020-06-06] MEDS: Enoxaparin 40 MG/0.4 ML SYR SUBCUT SCH (20:54)
[2020-06-06] MEDS ORDERED: Ondansetron 4 mg VIAL 2 MG/ML 2 ml VIAL IV PRN (23:45)
[2020-06-06] MEDS ORDERED: Morphine 2 MG/ML SYRINGE IV ONE (23:58)
[2020-06-07] MEDS: ZOSYN 3.375 GM Q8H per EXTENDED INFUSION IV SCH (05:44)
[2020-06-07] MEDS ORDERED: Morphine 2 MG/ML SYRINGE IV ONE (09:58)
[2020-06-07 09:59] LABS: Calcium 8.7 mg/dL (8.6-10.3); EGFR African American 163.1 (>60); EGFR Non-African American 134.8 (>60); Potassium 3.5 mmol/L (3.5-5.0)
[2020-06-07] MEDS: Dexamethasone IV 4 MG/ML VIAL 1 ml VIAL IV SLOW PU SCH (10:15)
[2020-06-07] MEDS: Pantoprazole VIAL 40 MG VIAL IV SCH (10:15)
[2020-06-07 11:40] VITALS: BP 136/72
== END 2020-06-07 15:40 | disposition home or self-care (01) | DRG 279 ==
LOC: ICU 16:59 → MEDTELE 06-06 08:18
PROVIDERS: ADMIT Internal Medicine; ATTEND Hospitalist

== ENCOUNTER 2020-07-01 23:52 | Inpatient (IN) ==
[2020-07-02] MEDS ORDERED: Albuterol/Ipratropium NEB.SOL (2.5/0.5 MG) 3 ML NEB.SOLN INH ONE (00:21)
[2020-07-02 00:38] LABS: ABS Monocytes 0.6 10^3/ul (0-0.8); ABS Neutrophils 5.4 10^3/ul (1.5-7.7); Eosinophil % 0.1 %; Hematocrit 34 % (42-52); Hemoglobin 11.9 g/dL (14.0-18.0); Lymphocyte % 14.8 %; Mean Corpuscular HGB Conc 35 g/dL (31-36); Mean Corpuscular Hemoglobin 30 pg (27-31); Mean Corpuscular Volume 85 fL (80-94); Mean Platelet Volume 7.2 fL (7.4-10.4); Platelet Count 319 10^3/uL (150-450); Red Blood Count 4.03 10^6 /uL (4.18-5.48); Red Cell Distribution Width 14 % (10-15); White Blood Count 7.1 10^3/uL (3.5-10.8)
[2020-07-02 01:01] LABS: ALT 16 U/L (7-52); AST 19 U/L (13-39); Albumin 3.3 g/dL (3.2-5.2); Albumin/Globulin Ratio 1.1 (1-3); Alkaline Phosphatase 66 U/L (35-149); Blood Urea Nitrogen 20 mg/dL (6-24); C Reactive Protein 14.39 mg/L (<8.01); CO2 Carbon Dioxide 31 mmol/L (22-32); Chloride 99 mmol/L (101-111); EGFR African American 127.5 (>60); EGFR Non-African American 105.4 (>60); Glucose 177 mg/dL (70-100); Sodium 138 mmol/L (135-145); Total Protein 6.3 g/dL (6.4-8.9)
[2020-07-02 01:05] LABS: Anion Gap 8 mmol/L (2-11); Potassium 2.5 mmol/L (3.5-5.0); Troponin I 0.04 ng/mL (<0.03)
[2020-07-02] MEDS ORDERED: Potassium Chlor 20 meq TAB.ER PO ONE (01:07)
[2020-07-02 02:00] LABS: Magnesium 2.2 mg/dL (1.9-2.7)
[2020-07-02] MEDS ORDERED: Iohexol 350 (CONTRAST) 500 ML MDV IV ONE (02:00)
[2020-07-02] MEDS ORDERED: EPINEPHrine,Rac 2.25% NEB.SOL 0.5 ML INH ONE (03:00)
[2020-07-02] MEDS ORDERED: Ketamine HCL 50 mg/ml 10 ml VIAL (500 MG) ONE (03:08)
[2020-07-02] MEDS ORDERED: Rocuronium 50 mg VIAL 10 mg/ml 5 ml VIAL (50 mg) ONE ×2 (03:08→04:52)
[2020-07-02] MEDS ORDERED: Succinylcholine 200 mg VIAL 20 mg/ml 10 ml VIAL (200 mg) ONE (03:08)
[2020-07-02] MEDS ORDERED: Propofol 10 mg/ml 100 ML BTL 100 ML ONE (03:11)
[2020-07-02] MEDS: Midazolam 10 mg/10 ml VIAL 1 mg/ml 10 ml VIAL (10 mg) IV SLOW PU ONE ×2 (03:17→03:47)
[2020-07-02] MEDS ORDERED: Dexmedetomidine 200 mcg/2 ml 2 ml VIAL (200 mcg) IV ONE (03:21)
[2020-07-02] MEDS ORDERED: Dexmedetomidine 1,000 MCG in NS 0.9% 250 ml 240 ML IV SCH (03:21)
[2020-07-02] MEDS: Ketamine HCL 50 mg/ml 10 ml VIAL (500 MG) IV ONE ×2 (03:27→03:34)
[2020-07-02] MEDS ORDERED: Glycopyrrolate IV 0.2 MG/ML 1 ML VIAL IV SLOW PU ONE (03:52)
[2020-07-02] MEDS ORDERED: Propofol 10 mg/ml 100 ML BTL 100 ML IV ONE (03:59)
[2020-07-02] MEDS ORDERED: Lidocaine 2% w/ EPI 1:200,000 MPF 20 ML SDV VIAL ONE (04:15)
[2020-07-02] MEDS ORDERED: NS 0.9% 1000 ml BAG 1,000 ML IV ONE (04:24)
[2020-07-02] MEDS ORDERED: Benzocaine/Butamben/Tetracain (CETACAINE - SINGLE USE) 5 gm TOPICAL ONE (04:30)
[2020-07-02] MEDS ORDERED: EPHEDrine (Pressors) 50 MG/ML VIAL ONE (04:32)
[2020-07-02] MEDS ORDERED: Norepinephrine 16MCG/ML IVPRE 4,000 MCG/250 ML BAG IV ONE ×2 (04:33→04:35)
[2020-07-02] MEDS ORDERED: Norepinephrine 16MCG/ML IVPRE 4,000 MCG/250 ML BAG IV SCH ×2 (04:36→07:00)
[2020-07-02] MEDS ORDERED: Lidocaine 2% w/ EPI 1:200,000 MPF 20 ML SDV VIAL INJ ONE (04:40)
[2020-07-02] MEDS ORDERED: Lidocaine 1% w EPI 1:100,000 MDV 20 ML VIAL ONE (04:51)
[2020-07-02] MEDS ORDERED: Rocuronium 50 mg VIAL 10 mg/ml 5 ml VIAL (50 mg) IV ONE (04:54)
[2020-07-02] MEDS: Propofol 10 mg/ml 100 ML BTL 100 ML IV SCH ×5 (05:15→22:38)
[2020-07-02] MEDS ORDERED: Dexamethasone IV 4 MG/ML VIAL 1 ml VIAL IM ONE (05:55)
[2020-07-02] MEDS ORDERED: NS 0.9% 1000 ml BAG 1,000 ML IV SCH (06:00)
[2020-07-02] MEDS ORDERED: Piperacillin/Tazobac ADVAN 3.375 GM in NS 0.9% 100 ml BAG 100 ML IV ONE (06:00)
[2020-07-02 06:22] LABS: Urine Appearance Clear; Urine Bilirubin Negative (Negative); Urine Blood Negative (Negative); Urine Color Yellow; Urine Glucose Negative (Negative); Urine Ketones Negative (Negative); Urine Nitrite Negative (Negative); Urine Protein Negative (Negative); Urine Specific Gravity 1.033 (1.002-1.030); Urine Urobilinogen Negative (Negative)
[2020-07-02 06:38] LABS: Urine Benzodiazepine Screen Presumptive Positive (None Detect); Urine Cannabinoids Screen Presumptive Positive (None Detect); Urine Opiates Screen Presumptive Positive (None Detect)
[2020-07-02 07:03] LABS: ALT 14 U/L (7-52); AST 18 U/L (13-39); Albumin 2.9 g/dL (3.2-5.2); Alkaline Phosphatase 64 U/L (35-149); Anion Gap 6 mmol/L (2-11); Blood Urea Nitrogen 17 mg/dL (6-24); CO2 Carbon Dioxide 29 mmol/L (22-32); Calcium 8.1 mg/dL (8.6-10.3); Chloride 104 mmol/L (101-111); EGFR African American 129.4 (>60); EGFR Non-African American 106.9 (>60); Globulin 2.8 g/dL (2-4); Glucose 135 mg/dL (70-100); Sodium 139 mmol/L (135-145); Total Protein 5.7 g/dL (6.4-8.9)
[2020-07-02] MEDS: Heparin 5000 UNITS/ML 1 mL VIAL SUBCUT SCH ×2 (07:52→20:22)
[2020-07-02] MEDS: Chlorhexidine MOUTHWASH 0.12% 15 ML UDC TOPICAL SCH ×4 (07:52→20:22)
[2020-07-02] MEDS: Pantoprazole VIAL 40 MG VIAL IV SCH (07:52)
[2020-07-02 08:33] LABS: Hematocrit 37 % (42-52); Hemoglobin 12.3 g/dL (14.0-18.0); Mean Corpuscular HGB Conc 33 g/dL (31-36); Mean Corpuscular Hemoglobin 29 pg (27-31); Mean Corpuscular Volume 87 fL (80-94); Mean Platelet Volume 7.8 fL (7.4-10.4); Platelet Count 568 10^3/uL (150-450); Red Blood Count 4.26 10^6 /uL (4.18-5.48); Red Cell Distribution Width 15 % (10-15); White Blood Count 14.5 10^3/uL (3.5-10.8)
[2020-07-02 09:34] LABS: ABS Lymphocytes 1.7 10^3/ul (1.0-4.8); ABS Monocytes 0.7 10^3/ul (0-0.8); ABS Neutrophils 12.1 10^3/ul (1.5-7.7); Eosinophil % 0.1 %; Lymphocyte % 11.4 %; Nucleated Red Blood Cells % 0.1
[2020-07-02] MEDS ORDERED: Magnesium Sulfate 2 gm BAG 2 GM/50 ML BAG IVPB ONE (10:12)
[2020-07-02] MEDS: KCL 20 MEQ/100 ML IVPREMIX 20 MEQ/100 ML BAG IV SCH ×2 (10:45→12:50)
[2020-07-02] MEDS ORDERED: Lorazepam PYXIS KEY PRN (11:47)
[2020-07-02] MEDS ORDERED: Multivitamins ADULT w/MIN LIQ 15 ML UDC PO SCH (12:00)
[2020-07-02] MEDS: Thiamine 100 MG/ML 2 ml VIAL 100 MG in NS 0.9% 50 ML 50 ML IV SCH (12:41)
[2020-07-02] MEDS: LORazepam 2 mg VIAL 1 ml IV PUSH PRN ×2 (12:45→18:03)
[2020-07-02] MEDS ORDERED: D5LR 20 MEQ KCL 1000 ml BAG 1,000 ML IV SCH (14:00)
[2020-07-02] MEDS ORDERED: POTASSIUM CHLORIDE IV SCH (16:48)
[2020-07-02] MEDS ORDERED: D5LR IV SCH (16:48)
[2020-07-02 20:31] LABS: ABS Lymphocytes 1.1 10^3/ul (1.0-4.8); ABS Monocytes 0.6 10^3/ul (0-0.8); ABS Neutrophils 8.2 10^3/ul (1.5-7.7); Hematocrit 35 % (42-52); Hemoglobin 11.9 g/dL (14.0-18.0); Lymphocyte % 10.7 %; Mean Corpuscular HGB Conc 34 g/dL (31-36); Mean Corpuscular Hemoglobin 29 pg (27-31); Mean Corpuscular Volume 86 fL (80-94); Mean Platelet Volume 7.6 fL (7.4-10.4); Platelet Count 324 10^3/uL (150-450); Red Blood Count 4.09 10^6 /uL (4.18-5.48); Red Cell Distribution Width 15 % (10-15); White Blood Count 9.9 10^3/uL (3.5-10.8)
[2020-07-02 20:43] LABS: ALT 13 U/L (7-52); AST 15 U/L (13-39); Albumin 2.8 g/dL (3.2-5.2); Alkaline Phosphatase 60 U/L (35-149); Anion Gap 4 mmol/L (2-11); Blood Urea Nitrogen 13 mg/dL (6-24); CO2 Carbon Dioxide 28 mmol/L (22-32); Calcium 8.4 mg/dL (8.6-10.3); Chloride 107 mmol/L (101-111); EGFR African American 166.2 (>60); EGFR Non-African American 137.3 (>60); Globulin 2.8 g/dL (2-4); Glucose 151 mg/dL (70-100); Magnesium 2.2 mg/dL (1.9-2.7); Potassium 3.6 mmol/L (3.5-5.0); Sodium 139 mmol/L (135-145); Total Protein 5.6 g/dL (6.4-8.9)
[2020-07-02 20:55] LABS: Troponin I 0.37 ng/mL (<0.03)
[2020-07-02] MEDS ORDERED: Sodium Phosphate IV 30 MMOLE in NS 0.9% 250 ml 250 ML IVPB ONE (20:59)
[2020-07-02] MEDS: D5LR 1000 ml BAG 1,000 ML IV SCH (21:46)
[2020-07-02] MEDS ORDERED: Potassium Phosphate IV 15 MMOLE in NS 0.9% 250 ml 250 ML IVPB ONE (22:00)
[2020-07-03] MEDS: LORazepam 2 mg VIAL 1 ml IV PUSH PRN ×2 (00:25→07:43)
[2020-07-03] MEDS: Chlorhexidine MOUTHWASH 0.12% 15 ML UDC TOPICAL SCH ×7 (00:25→23:20)
[2020-07-03] MEDS: Propofol 10 mg/ml 100 ML BTL 100 ML IV SCH ×5 (03:42→21:16)
[2020-07-03 05:58] LABS: ABS Lymphocytes 1.8 10^3/ul (1.0-4.8); ABS Monocytes 0.7 10^3/ul (0-0.8); ABS Neutrophils 6.4 10^3/ul (1.5-7.7); Eosinophil % 0.5 %; Hematocrit 34 % (42-52); Hemoglobin 11.5 g/dL (14.0-18.0); Lymphocyte % 19.8 %; Mean Corpuscular HGB Conc 34 g/dL (31-36); Mean Corpuscular Hemoglobin 29 pg (27-31); Mean Corpuscular Volume 86 fL (80-94); Mean Platelet Volume 7.6 fL (7.4-10.4); Platelet Count 276 10^3/uL (150-450); Red Blood Count 3.93 10^6 /uL (4.18-5.48); Red Cell Distribution Width 14 % (10-15); White Blood Count 8.9 10^3/uL (3.5-10.8)
[2020-07-03 06:14] LABS: Calcium 8.3 mg/dL (8.6-10.3); EGFR African American 190.8 (>60); EGFR Non-African American 157.7 (>60); Magnesium 1.9 mg/dL (1.9-2.7); Phosphorus 2.2 mg/dL (2.5-5.0); Potassium 3.2 mmol/L (3.5-5.0)
[2020-07-03] MEDS ORDERED: Magnesium Sulfate IV 1GM/100ML 1 GM/100 ML BAG IV ONE (07:06)
[2020-07-03] MEDS: Pantoprazole VIAL 40 MG VIAL IV SCH (07:21)
[2020-07-03] MEDS: Heparin 5000 UNITS/ML 1 mL VIAL SUBCUT SCH ×2 (07:21→20:38)
[2020-07-03] MEDS: KCL 20 MEQ/100 ML IVPREMIX 20 MEQ/100 ML BAG IV SCH ×2 (07:51→10:18)
[2020-07-03] MEDS ORDERED: Potassium Phosphate IV 15 MMOLE in NS 0.9% 250 ml 250 ML IVPB ONE (08:00)
[2020-07-03] MEDS ORDERED: cefTRIAXone 1 gm/50 mL NS BAG 1 GM/50 ML BAG IVPB SCH (10:00)
[2020-07-03] MEDS: D5LR 1000 ml BAG 1,000 ML IV SCH (11:17)
[2020-07-03] MEDS: Thiamine 100 MG/ML 2 ml VIAL 100 MG in NS 0.9% 50 ML 50 ML IV SCH (12:15)
[2020-07-03] MEDS: cefTRIAXone 1 gm/50 mL NS BAG 1 GM/50 ML BAG IVPB SCH (20:23)
[2020-07-04] MEDS: D5LR 1000 ml BAG 1,000 ML IV SCH ×2 (00:39→16:37)
[2020-07-04] MEDS: Propofol 10 mg/ml 100 ML BTL 100 ML IV SCH ×2 (02:25→06:26)
[2020-07-04] MEDS: Chlorhexidine MOUTHWASH 0.12% 15 ML UDC TOPICAL SCH ×5 (04:32→20:13)
[2020-07-04 05:09] LABS: Blood Urea Nitrogen 9 mg/dL (6-24); CO2 Carbon Dioxide 28 mmol/L (22-32); Calcium 8.1 mg/dL (8.6-10.3); Chloride 99 mmol/L (101-111); EGFR African American 186.9 (>60); EGFR Non-African American 154.4 (>60); Glucose 132 mg/dL (70-100); Phosphorus 2.9 mg/dL (2.5-5.0); Sodium 132 mmol/L (135-145)
[2020-07-04 05:17] LABS: Anion Gap 5 mmol/L (2-11)
[2020-07-04] MEDS: LORazepam 2 mg VIAL 1 ml IV PUSH PRN ×3 (05:32→20:14)
[2020-07-04 05:51] LABS: Magnesium 1.7 mg/dL (1.9-2.7); Potassium Redraw 2.9 mmol/L (3.5-5.0)
[2020-07-04] MEDS ORDERED: Potassium Chloride LIQUID 20 MEQ/15 ML LIQUID PO ONE ×2 (07:16→15:57)
[2020-07-04] MEDS ORDERED: Magnesium Sulfate IV 3 GM in NS 0.9% 100 ml BAG 100 ML IVPB ONE (07:24)
[2020-07-04] MEDS: Heparin 5000 UNITS/ML 1 mL VIAL SUBCUT SCH ×2 (08:09→20:14)
[2020-07-04] MEDS: KCL 20 MEQ/100 ML IVPREMIX 20 MEQ/100 ML BAG IV SCH ×3 (08:09→12:29)
[2020-07-04] MEDS: Pantoprazole VIAL 40 MG VIAL IV SCH (08:10)
[2020-07-04] MEDS: cefTRIAXone 1 gm/50 mL NS BAG 1 GM/50 ML BAG IVPB SCH ×2 (09:40→21:12)
[2020-07-04] MEDS: Thiamine 100 MG/ML 2 ml VIAL 100 MG in NS 0.9% 50 ML 50 ML IV SCH (11:36)
[2020-07-04] MEDS ORDERED: LORazepam 2 mg VIAL 1 ml IV PUSH ONE (11:59)
[2020-07-04] MEDS ORDERED: Lorazepam PYXIS KEY PRN (11:59)
[2020-07-04 15:54] LABS: Calcium 8.2 mg/dL (8.6-10.3); EGFR African American 175.9 (>60); EGFR Non-African American 145.4 (>60); Magnesium 2.1 mg/dL (1.9-2.7); Potassium 3.9 mmol/L (3.5-5.0)
[2020-07-05] MEDS: LORazepam 2 mg VIAL 1 ml IV PUSH PRN ×5 (02:30→23:59)
[2020-07-05] MEDS: Chlorhexidine MOUTHWASH 0.12% 15 ML UDC TOPICAL SCH ×7 (05:12→23:59)
[2020-07-05 06:08] LABS: Calcium 8.3 mg/dL (8.6-10.3); EGFR African American 203.5 (>60); EGFR Non-African American 168.2 (>60); Magnesium 1.9 mg/dL (1.9-2.7); Phosphorus 2.7 mg/dL (2.5-5.0); Potassium 3.7 mmol/L (3.5-5.0)
[2020-07-05 06:18] LABS: ABS Eosinophils 0.2 10^3/ul (0-0.6); ABS Lymphocytes 1.4 10^3/ul (1.0-4.8); ABS Monocytes 0.5 10^3/ul (0-0.8); ABS Neutrophils 4.6 10^3/ul (1.5-7.7); Eosinophil % 2.4 %; Hematocrit 33 % (42-52); Lymphocyte % 21.3 %; Mean Corpuscular HGB Conc 34 g/dL (31-36); Mean Corpuscular Hemoglobin 30 pg (27-31); Mean Corpuscular Volume 88 fL (80-94); Mean Platelet Volume 8.2 fL (7.4-10.4); Platelet Count 189 10^3/uL (150-450); Red Blood Count 3.72 10^6 /uL (4.18-5.48); Red Cell Distribution Width 15 % (10-15); White Blood Count 6.7 10^3/uL (3.5-10.8)
[2020-07-05] MEDS ORDERED: Magnesium Sulfate 2 gm BAG 2 GM/50 ML BAG IVPB ONE (07:36)
[2020-07-05] MEDS: cefTRIAXone 1 gm/50 mL NS BAG 1 GM/50 ML BAG IVPB SCH ×2 (08:48→20:12)
[2020-07-05] MEDS: Pantoprazole VIAL 40 MG VIAL IV SCH (08:49)
[2020-07-05] MEDS: Heparin 5000 UNITS/ML 1 mL VIAL SUBCUT SCH ×2 (08:49→20:06)
[2020-07-05] MEDS ORDERED: LORazepam 2 mg VIAL 1 ml IV PUSH SCH (09:00)
[2020-07-05] MEDS ORDERED: Lidocaine 1% VIAL 10 MG/ML VIAL ONE ×2 (09:09→10:18)
[2020-07-05] MEDS ORDERED: Buffered Lidocaine 1% SYRIN 1 ml INTRADERM ONE (16:39)
[2020-07-06] MEDS: Chlorhexidine MOUTHWASH 0.12% 15 ML UDC TOPICAL SCH ×6 (03:01→23:05)
[2020-07-06] MEDS ORDERED: NS 0.9% 100 ml BAG 100 ML ONE (05:18)
[2020-07-06] MEDS: LORazepam 2 mg VIAL 1 ml IV PUSH PRN ×4 (05:20→22:19)
[2020-07-06] MEDS: Pantoprazole VIAL 40 MG VIAL IV SCH (07:59)
[2020-07-06] MEDS: Heparin 5000 UNITS/ML 1 mL VIAL SUBCUT SCH ×2 (07:59→20:39)
[2020-07-06] MEDS ORDERED: Magnesium Hydroxide LIQ 30 ML UDC PO PRN (08:07)
[2020-07-06] MEDS ORDERED: Methylnaltrexone 150 MG TAB PO SCH (09:00)
[2020-07-06] MEDS ORDERED: METHYLNALTREXONE 12 MG/0.6 ML SUBCUT ONE (09:00)
[2020-07-06] MEDS ORDERED: [UNRECOGNIZED DRUG - OTHER] G TUBE SCH (09:00)
[2020-07-06] MEDS: Saline FLUSH-CENTRAL 10 ML SYRINGE CENT\\PICC SCH ×2 (09:20→20:40)
[2020-07-06] MEDS: Senna TAB 8.6 mg TAB PO SCH (09:24)
[2020-07-06] MEDS: Docusate LIQ 100 MG/10 ML UDC PO SCH (09:24)
[2020-07-06 09:32] LABS: ABS Eosinophils 0.2 10^3/ul (0-0.6); ABS Lymphocytes 1.3 10^3/ul (1.0-4.8); ABS Monocytes 0.8 10^3/ul (0-0.8); ABS Neutrophils 4.8 10^3/ul (1.5-7.7); Eosinophil % 2.3 %; Hematocrit 36 % (42-52); Hemoglobin 11.9 g/dL (14.0-18.0); Lymphocyte % 17.9 %; Mean Corpuscular HGB Conc 33 g/dL (31-36); Mean Corpuscular Hemoglobin 29 pg (27-31); Mean Corpuscular Volume 88 fL (80-94); Mean Platelet Volume 8.2 fL (7.4-10.4); Platelet Count 222 10^3/uL (150-450); Red Blood Count 4.11 10^6 /uL (4.18-5.48); Red Cell Distribution Width 15 % (10-15); White Blood Count 7.1 10^3/uL (3.5-10.8)
[2020-07-06 09:49] LABS: Anion Gap 5 mmol/L (2-11); Blood Urea Nitrogen 12 mg/dL (6-24); CO2 Carbon Dioxide 31 mmol/L (22-32); Calcium 8.7 mg/dL (8.6-10.3); Chloride 104 mmol/L (101-111); EGFR African American 146.9 (>60); EGFR Non-African American 121.4 (>60); Glucose 105 mg/dL (70-100); Phosphorus 3.3 mg/dL (2.5-5.0); Potassium 3.6 mmol/L (3.5-5.0); Sodium 140 mmol/L (135-145)
[2020-07-06 09:53] LABS: Troponin I 0.04 ng/mL (<0.03)
[2020-07-06] MEDS ORDERED: Potassium Chloride LIQUID 20 MEQ/15 ML LIQUID PO ONE (09:57)
[2020-07-06] MEDS: Morphine 2 MG/ML SYRINGE IV PRN ×3 (13:24→23:06)
[2020-07-06] MEDS ORDERED: Perflutren Lipid Microsphere 3 ML VIAL ONE (14:32)
[2020-07-06] MEDS ORDERED: Lidocaine 1% MPF 5 ML VIAL ONE (22:30)
[2020-07-07] MEDS: LORazepam 2 mg VIAL 1 ml IV PUSH PRN (01:15)
[2020-07-07] MEDS: Morphine 2 MG/ML SYRINGE IV PRN ×4 (03:03→23:12)
[2020-07-07] MEDS: Chlorhexidine MOUTHWASH 0.12% 15 ML UDC TOPICAL SCH ×6 (04:56→23:12)
[2020-07-07 05:25] LABS: ABS Eosinophils 0.1 10^3/ul (0-0.6); ABS Lymphocytes 1.1 10^3/ul (1.0-4.8); ABS Neutrophils 5.6 10^3/ul (1.5-7.7); Hematocrit 34 % (42-52); Hemoglobin 11.3 g/dL (14.0-18.0); Lymphocyte % 14.7 %; Mean Corpuscular HGB Conc 34 g/dL (31-36); Mean Corpuscular Hemoglobin 29 pg (27-31); Mean Corpuscular Volume 86 fL (80-94); Mean Platelet Volume 8.3 fL (7.4-10.4); Platelet Count 202 10^3/uL (150-450); Red Blood Count 3.92 10^6 /uL (4.18-5.48); Red Cell Distribution Width 15 % (10-15); White Blood Count 7.8 10^3/uL (3.5-10.8)
[2020-07-07 05:46] LABS: Calcium 8.1 mg/dL (8.6-10.3); Potassium 3.9 mmol/L (3.5-5.0)
[2020-07-07 05:52] LABS: EGFR African American 183.1 (>60); EGFR Non-African American 151.3 (>60)
[2020-07-07] MEDS ORDERED: Potassium Chlor 20 meq TAB.ER PO ONE (07:13)
[2020-07-07] MEDS ORDERED: KCL 20 MEQ/100 ML IVPREMIX 20 MEQ/100 ML BAG IV ONE (07:32)
[2020-07-07] MEDS: Senna TAB 8.6 mg TAB PO SCH (07:59)
[2020-07-07] MEDS: Heparin 5000 UNITS/ML 1 mL VIAL SUBCUT SCH ×2 (08:01→20:39)
[2020-07-07] MEDS: Pantoprazole VIAL 40 MG VIAL IV SCH (08:01)
[2020-07-07] MEDS: Saline FLUSH-CENTRAL 10 ML SYRINGE CENT\\PICC SCH ×2 (08:02→20:40)
[2020-07-07] MEDS: Docusate LIQ 100 MG/10 ML UDC PO SCH (08:02)
[2020-07-08] MEDS ORDERED: NS 0.9% 100 ml BAG 100 ML ONE (05:06)
[2020-07-08] MEDS: Chlorhexidine MOUTHWASH 0.12% 15 ML UDC TOPICAL SCH ×5 (05:08→23:31)
[2020-07-08] MEDS: oxyCODONE 5 mg/5 ml ORAL.SOLN UDC PO PRN ×3 (05:08→23:16)
[2020-07-08 05:12] LABS: Calcium 8.7 mg/dL (8.6-10.3); EGFR African American 186.9 (>60); EGFR Non-African American 154.4 (>60); Potassium 4.1 mmol/L (3.5-5.0)
[2020-07-08] MEDS: Senna TAB 8.6 mg TAB PO SCH (08:53)
[2020-07-08] MEDS: Docusate LIQ 100 MG/10 ML UDC PO SCH (08:53)
[2020-07-08] MEDS: Heparin 5000 UNITS/ML 1 mL VIAL SUBCUT SCH ×2 (08:53→23:16)
[2020-07-08] MEDS: Pantoprazole VIAL 40 MG VIAL IV SCH (08:53)
[2020-07-08] MEDS: Saline FLUSH-CENTRAL 10 ML SYRINGE CENT\\PICC SCH ×2 (08:54→23:31)
[2020-07-08] MEDS: Morphine 2 MG/ML SYRINGE IV PRN (19:35)
[2020-07-08] MEDS ORDERED: Lactated Ringers 500 ml BAG 500 ML IV ONE (21:50)
[2020-07-09] MEDS: Chlorhexidine MOUTHWASH 0.12% 15 ML UDC TOPICAL SCH ×6 (02:29→21:02)
[2020-07-09] MEDS: Ibuprofen ADULT LIQ 600 MG/30 ML UDC FEED TUBE SCH ×3 (05:13→21:34)
[2020-07-09] MEDS: oxyCODONE 5 mg/5 ml ORAL.SOLN UDC PO PRN ×3 (05:20→21:28)
[2020-07-09] MEDS ORDERED: Lactated Ringers 500 ml BAG 500 ML IV ONE (06:19)
[2020-07-09 07:52] LABS: Phosphorus 3.9 mg/dL (2.5-5.0)
[2020-07-09] MEDS: Senna TAB 8.6 mg TAB PO SCH (09:38)
[2020-07-09] MEDS: Pantoprazole VIAL 40 MG VIAL IV SCH (09:38)
[2020-07-09] MEDS: Docusate LIQ 100 MG/10 ML UDC PO SCH (09:38)
[2020-07-09] MEDS: Saline FLUSH-CENTRAL 10 ML SYRINGE CENT\\PICC SCH ×2 (09:38→21:37)
[2020-07-09] MEDS: Heparin 5000 UNITS/ML 1 mL VIAL SUBCUT SCH ×2 (09:38→21:02)
[2020-07-09] MEDS: Morphine 2 MG/ML SYRINGE IV PRN (18:13)
[2020-07-10] MEDS: Chlorhexidine MOUTHWASH 0.12% 15 ML UDC TOPICAL SCH ×6 (01:21→21:16)
[2020-07-10] MEDS: Ibuprofen ADULT LIQ 600 MG/30 ML UDC FEED TUBE SCH ×3 (03:58→21:30)
[2020-07-10] MEDS: oxyCODONE 5 mg/5 ml ORAL.SOLN UDC PO PRN ×3 (03:58→18:25)
[2020-07-10] MEDS: Saline FLUSH-CENTRAL 10 ML SYRINGE CENT\\PICC SCH ×2 (08:26→21:30)
[2020-07-10] MEDS: Pantoprazole VIAL 40 MG VIAL IV SCH (08:35)
[2020-07-10] MEDS: Heparin 5000 UNITS/ML 1 mL VIAL SUBCUT SCH ×2 (08:35→21:29)
[2020-07-10] MEDS: Senna TAB 8.6 mg TAB PO SCH (08:35)
[2020-07-10] MEDS: Docusate LIQ 100 MG/10 ML UDC PO SCH (08:35)
[2020-07-10 08:58] LABS: ABS Basophils 0.1 10^3/ul (0-0.2); ABS Eosinophils 0.1 10^3/ul (0-0.6); ABS Lymphocytes 1.4 10^3/ul (1.0-4.8); ABS Monocytes 0.7 10^3/ul (0-0.8); ABS Neutrophils 4.6 10^3/ul (1.5-7.7); Eosinophil % 1.6 %; Hematocrit 31 % (42-52); Hemoglobin 10.3 g/dL (14.0-18.0); Lymphocyte % 19.9 %; Mean Corpuscular HGB Conc 33 g/dL (31-36); Mean Corpuscular Hemoglobin 29 pg (27-31); Mean Corpuscular Volume 87 fL (80-94); Mean Platelet Volume 8.9 fL (7.4-10.4); Nucleated Red Blood Cells % 0.1; Platelet Count 239 10^3/uL (150-450); Red Blood Count 3.58 10^6 /uL (4.18-5.48); Red Cell Distribution Width 15 % (10-15); White Blood Count 6.9 10^3/uL (3.5-10.8)
[2020-07-10 09:14] LABS: INR 1.16 (0.82-1.09)
[2020-07-10 09:19] LABS: Troponin I 0.01 ng/mL (<0.03)
[2020-07-10 09:20] LABS: Albumin 2.8 g/dL (3.2-5.2); Albumin/Globulin Ratio 0.9 (1-3); EGFR African American 154.6 (>60); EGFR Non-African American 127.8 (>60); Globulin 3.2 g/dL (2-4); Magnesium 2.2 mg/dL (1.9-2.7); Phosphorus 3.9 mg/dL (2.5-5.0); Total Bilirubin 0.3 mg/dL (0.2-1.0)
[2020-07-11] MEDS: Chlorhexidine MOUTHWASH 0.12% 15 ML UDC TOPICAL SCH ×6 (00:25→20:00)
[2020-07-11] MEDS: Ibuprofen ADULT LIQ 600 MG/30 ML UDC FEED TUBE SCH (04:41)
[2020-07-11] MEDS: Pantoprazole VIAL 40 MG VIAL IV SCH (08:13)
[2020-07-11] MEDS: Heparin 5000 UNITS/ML 1 mL VIAL SUBCUT SCH ×2 (08:13→23:16)
[2020-07-11] MEDS: Docusate LIQ 100 MG/10 ML UDC PO SCH (08:13)
[2020-07-11] MEDS: Morphine 2 MG/ML SYRINGE IV PRN (08:19)
[2020-07-11] MEDS: Senna TAB 8.6 mg TAB PO SCH (09:12)
[2020-07-11] MEDS: Saline FLUSH-CENTRAL 10 ML SYRINGE CENT\\PICC SCH ×2 (09:12→20:00)
[2020-07-11] MEDS ORDERED: Lidocaine 4% TOPICAL 50 ML TOP.SOLN ONE (10:10)
[2020-07-11] MEDS ORDERED: Oxymetazoline 0.05% NASAL SPR 15 ML BTL ONE (10:10)
[2020-07-11] MEDS ORDERED: Rocuronium 50 mg VIAL 10 mg/ml 5 ml VIAL (50 mg) ONE (10:26)
[2020-07-11] MEDS ORDERED: Propofol 10 MG/ML 20 ML BTL ONE (10:26)
[2020-07-11] MEDS ORDERED: Midazolam 2 mg/2 ml VIAL 1 mg/ml 2 ml VIAL (2 mg) ONE (10:26)
[2020-07-11] MEDS ORDERED: fentaNYL 100 mcg/2 ml 50 MCG/ML VIAL ONE (10:26)
[2020-07-11] MEDS ORDERED: Lidocaine 2% PF 5 ML VIAL ONE (10:26)
[2020-07-11] MEDS ORDERED: Ondansetron 4 mg VIAL 2 MG/ML 2 ml VIAL IV PRN (10:48)
[2020-07-11] MEDS ORDERED: Levalbuterol 0.63MG/3ML NEB UNIT OF USE INH PRN (10:48)
[2020-07-11] MEDS ORDERED: fentaNYL 100 mcg/2 ml 50 MCG/ML VIAL IV PRN (10:48)
[2020-07-11] MEDS ORDERED: Naloxone 0.4 mg VIAL 0.4 mg/ml 1 ml VIAL IV PRN (10:48)
[2020-07-12] MEDS: Chlorhexidine MOUTHWASH 0.12% 15 ML UDC TOPICAL SCH ×7 (00:03→23:19)
[2020-07-12 06:43] LABS: ABS Basophils 0.1 10^3/ul (0-0.2); ABS Eosinophils 0.1 10^3/ul (0-0.6); ABS Lymphocytes 1.2 10^3/ul (1.0-4.8); ABS Monocytes 0.4 10^3/ul (0-0.8); ABS Neutrophils 3.6 10^3/ul (1.5-7.7); Eosinophil % 1.1 %; Hematocrit 28 % (42-52); Hemoglobin 9.3 g/dL (14.0-18.0); Mean Corpuscular HGB Conc 34 g/dL (31-36); Mean Corpuscular Hemoglobin 29 pg (27-31); Mean Corpuscular Volume 87 fL (80-94); Mean Platelet Volume 8.9 fL (7.4-10.4); Platelet Count 237 10^3/uL (150-450); Red Cell Distribution Width 15 % (10-15); White Blood Count 5.4 10^3/uL (3.5-10.8)
[2020-07-12 07:08] LABS: Calcium 8.6 mg/dL (8.6-10.3); EGFR African American 186.9 (>60); EGFR Non-African American 154.4 (>60); Potassium 3.8 mmol/L (3.5-5.0)
[2020-07-12] MEDS: Heparin 5000 UNITS/ML 1 mL VIAL SUBCUT SCH ×2 (09:09→20:07)
[2020-07-12] MEDS: Docusate LIQ 100 MG/10 ML UDC PO SCH (09:09)
[2020-07-12] MEDS: Senna TAB 8.6 mg TAB PO SCH (09:09)
[2020-07-12] MEDS: Pantoprazole VIAL 40 MG VIAL IV SCH (09:09)
[2020-07-12] MEDS: Saline FLUSH-CENTRAL 10 ML SYRINGE CENT\\PICC SCH ×2 (09:09→20:08)
[2020-07-12] MEDS ORDERED: COVID-19 VACCINE, AD26(JANSSEN)/PF 0.5 ML IM ONE (14:00)
[2020-07-12] MEDS: Albuterol/Ipratropium NEB.SOL (2.5/0.5 MG) 3 ML NEB.SOLN INH SCH ×2 (20:25→23:16)
[2020-07-13] MEDS: Albuterol/Ipratropium NEB.SOL (2.5/0.5 MG) 3 ML NEB.SOLN INH SCH ×6 (02:43→20:16)
[2020-07-13] MEDS: Chlorhexidine MOUTHWASH 0.12% 15 ML UDC TOPICAL SCH ×5 (03:38→20:30)
[2020-07-13] MEDS: oxyCODONE 5 mg/5 ml ORAL.SOLN UDC PO PRN ×3 (03:53→18:32)
[2020-07-13] MEDS: Pantoprazole VIAL 40 MG VIAL IV SCH (09:57)
[2020-07-13] MEDS: Heparin 5000 UNITS/ML 1 mL VIAL SUBCUT SCH (09:57)
[2020-07-13] MEDS: Saline FLUSH-CENTRAL 10 ML SYRINGE CENT\\PICC SCH ×2 (09:58→20:34)
[2020-07-13] MEDS: Docusate LIQ 100 MG/10 ML UDC PO SCH (09:58)
[2020-07-13] MEDS: Senna TAB 8.6 mg TAB PO SCH (09:58)
[2020-07-13] MEDS: Enoxaparin 40 MG/0.4 ML SYR SUBCUT SCH (13:25)
[2020-07-13] MEDS ORDERED: Ibuprofen ADULT LIQ 600 MG/30 ML UDC PO ONE (14:00)
[2020-07-13] MEDS ORDERED: Albuterol HFA INHALER 8 gm MDI INH PRN (18:45)
[2020-07-14] MEDS: Chlorhexidine MOUTHWASH 0.12% 15 ML UDC TOPICAL SCH ×6 (00:09→20:49)
[2020-07-14] MEDS: Albuterol/Ipratropium NEB.SOL (2.5/0.5 MG) 3 ML NEB.SOLN INH SCH ×6 (00:14→20:01)
[2020-07-14 05:47] LABS: ABS Eosinophils 0.1 10^3/ul (0-0.6); ABS Lymphocytes 0.8 10^3/ul (1.0-4.8); ABS Monocytes 0.5 10^3/ul (0-0.8); ABS Neutrophils 3.7 10^3/ul (1.5-7.7); Eosinophil % 1.1 %; Hematocrit 26 % (42-52); Hemoglobin 8.9 g/dL (14.0-18.0); Lymphocyte % 15.4 %; Mean Corpuscular HGB Conc 34 g/dL (31-36); Mean Corpuscular Hemoglobin 29 pg (27-31); Mean Corpuscular Volume 86 fL (80-94); Mean Platelet Volume 8.6 fL (7.4-10.4); Platelet Count 220 10^3/uL (150-450); Red Blood Count 3.06 10^6 /uL (4.18-5.48); Red Cell Distribution Width 15 % (10-15); White Blood Count 5.1 10^3/uL (3.5-10.8)
[2020-07-14 06:03] LABS: Calcium 8.5 mg/dL (8.6-10.3); EGFR African American 203.5 (>60); EGFR Non-African American 168.2 (>60); Potassium 3.9 mmol/L (3.5-5.0)
[2020-07-14] MEDS: DESVENLAFAXINE 50 MG PO SCH ×2 (08:50→13:52)
[2020-07-14] MEDS: oxyCODONE 5 mg/5 ml ORAL.SOLN UDC PO PRN ×2 (08:52→09:20)
[2020-07-14] MEDS: Saline FLUSH-CENTRAL 10 ML SYRINGE CENT\\PICC SCH ×2 (11:01→20:59)
[2020-07-14] MEDS: Senna TAB 8.6 mg TAB PO SCH (11:01)
[2020-07-14] MEDS: Enoxaparin 40 MG/0.4 ML SYR SUBCUT SCH (12:38)
[2020-07-14] MEDS: CMCS:Venlafaxine 25 mg TAB (NF) PO SCH ×2 (13:18→20:48)
[2020-07-14] MEDS: Morphine 10 MG/ML VIAL (1 ml) IV PRN ×2 (16:36→20:42)
[2020-07-15] MEDS: Chlorhexidine MOUTHWASH 0.12% 15 ML UDC TOPICAL SCH ×6 (00:44→20:26)
[2020-07-15] MEDS: Albuterol/Ipratropium NEB.SOL (2.5/0.5 MG) 3 ML NEB.SOLN INH SCH ×4 (01:09→20:01)
[2020-07-15 04:59] LABS: Hematocrit 27 % (42-52); Hemoglobin 9.2 g/dL (14.0-18.0); Mean Corpuscular HGB Conc 34 g/dL (31-36); Mean Corpuscular Hemoglobin 29 pg (27-31); Mean Corpuscular Volume 86 fL (80-94); Platelet Count 227 10^3/uL (150-450); Red Blood Count 3.16 10^6 /uL (4.18-5.48); Red Cell Distribution Width 15 % (10-15); White Blood Count 4.2 10^3/uL (3.5-10.8)
[2020-07-15 05:14] LABS: Anion Gap 3 mmol/L (2-11); Blood Urea Nitrogen 12 mg/dL (6-24); CO2 Carbon Dioxide 32 mmol/L (22-32); Calcium 8.6 mg/dL (8.6-10.3); Chloride 102 mmol/L (101-111); EGFR African American 183.1 (>60); EGFR Non-African American 151.3 (>60); Glucose 108 mg/dL (70-100); Potassium 3.9 mmol/L (3.5-5.0); Sodium 137 mmol/L (135-145)
[2020-07-15] MEDS: Ibuprofen ADULT LIQ 600 MG/30 ML UDC PO PRN (08:37)
[2020-07-15] MEDS: Senna TAB 8.6 mg TAB PO SCH (08:38)
[2020-07-15] MEDS: CMCS:Venlafaxine 25 mg TAB (NF) PO SCH ×2 (10:07→20:24)
[2020-07-15] MEDS: Saline FLUSH-CENTRAL 10 ML SYRINGE CENT\\PICC SCH ×2 (10:08→20:26)
[2020-07-15] MEDS: Enoxaparin 40 MG/0.4 ML SYR SUBCUT SCH (12:19)
[2020-07-15] MEDS: Morphine ORAL.SOLN 10 mg 2 mg/ml UDC 5 ml (10 mg) PO PRN (12:26)
[2020-07-15] MEDS: Morphine 10 MG/ML VIAL (1 ml) IV PRN ×2 (18:15→20:25)
[2020-07-16] MEDS: Chlorhexidine MOUTHWASH 0.12% 15 ML UDC TOPICAL SCH ×6 (00:10→20:03)
[2020-07-16] MEDS: Morphine 10 MG/ML VIAL (1 ml) IV PRN ×4 (00:37→15:51)
[2020-07-16] MEDS: Albuterol/Ipratropium NEB.SOL (2.5/0.5 MG) 3 ML NEB.SOLN INH SCH ×6 (01:20→19:52)
[2020-07-16] MEDS: Ibuprofen ADULT LIQ 600 MG/30 ML UDC PO PRN ×2 (07:24→15:56)
[2020-07-16] MEDS: Senna TAB 8.6 mg TAB PO SCH (09:26)
[2020-07-16] MEDS: Saline FLUSH-CENTRAL 10 ML SYRINGE CENT\\PICC SCH ×2 (09:31→22:25)
[2020-07-16] MEDS: CMCS:Venlafaxine 25 mg TAB (NF) PO SCH ×2 (09:31→22:25)
[2020-07-16] MEDS: Enoxaparin 40 MG/0.4 ML SYR SUBCUT SCH (12:16)
[2020-07-16] MEDS: Morphine ORAL.SOLN 10 mg 2 mg/ml UDC 5 ml (10 mg) PO PRN (19:46)
[2020-07-17] MEDS: Chlorhexidine MOUTHWASH 0.12% 15 ML UDC TOPICAL SCH ×6 (00:51→20:23)
[2020-07-17] MEDS: Albuterol/Ipratropium NEB.SOL (2.5/0.5 MG) 3 ML NEB.SOLN INH SCH ×4 (00:58→20:33)
[2020-07-17] MEDS: Morphine 10 MG/ML VIAL (1 ml) IV PRN ×3 (02:49→08:47)
[2020-07-17] MEDS: CMCS:Venlafaxine 25 mg TAB (NF) PO SCH (08:32)
[2020-07-17] MEDS: Senna TAB 8.6 mg TAB PO SCH (08:32)
[2020-07-17] MEDS: Saline FLUSH-CENTRAL 10 ML SYRINGE CENT\\PICC SCH ×2 (08:37→22:38)
[2020-07-17] MEDS: Morphine ORAL.SOLN 10 mg 2 mg/ml UDC 5 ml (10 mg) PO PRN ×2 (10:55→22:33)
[2020-07-17] MEDS: Enoxaparin 40 MG/0.4 ML SYR SUBCUT SCH (12:33)
[2020-07-17] MEDS: Ibuprofen ADULT LIQ 600 MG/30 ML UDC PO PRN ×2 (12:36→23:55)
[2020-07-17] MEDS: CMCS:Desvenlafaxine 50 mg TAB (NF) PO SCH (20:21)
[2020-07-17 21:36] LABS: Total Iron Binding Capacity 196 mcg/dL (250-450); Transferrin 140 mg/dL (203-362)
[2020-07-17 21:57] LABS: Ferritin 265.9 ng/mL (24-336)
[2020-07-17 21:58] LABS: % Iron Saturation 8 % (15-55); Iron 16 ug/dL (50-212); Unsaturated Iron Binding < 181 ug/dL
[2020-07-18] MEDS: Albuterol/Ipratropium NEB.SOL (2.5/0.5 MG) 3 ML NEB.SOLN INH SCH ×4 (00:31→20:10)
[2020-07-18] MEDS: Morphine 10 MG/ML VIAL (1 ml) IV PRN ×5 (00:46→20:22)
[2020-07-18] MEDS: Chlorhexidine MOUTHWASH 0.12% 15 ML UDC TOPICAL SCH ×6 (00:46→20:30)
[2020-07-18] MEDS: Ibuprofen ADULT LIQ 600 MG/30 ML UDC PO PRN (09:11)
[2020-07-18] MEDS: Saline FLUSH-CENTRAL 10 ML SYRINGE CENT\\PICC SCH ×2 (09:12→20:30)
[2020-07-18] MEDS: Senna TAB 8.6 mg TAB PO SCH (09:12)
[2020-07-18] MEDS: Iron Sucrose 200 MG in NS 0.9% 100 ml BAG 100 ML IVPB SCH (10:34)
[2020-07-18] MEDS: Enoxaparin 40 MG/0.4 ML SYR SUBCUT SCH (13:18)
[2020-07-18] MEDS: CMCS:Desvenlafaxine 50 mg TAB (NF) PO SCH (22:45)
[2020-07-19] MEDS: Chlorhexidine MOUTHWASH 0.12% 15 ML UDC TOPICAL SCH ×6 (00:10→20:43)
[2020-07-19] MEDS: Albuterol/Ipratropium NEB.SOL (2.5/0.5 MG) 3 ML NEB.SOLN INH SCH ×3 (01:20→14:58)
[2020-07-19] MEDS: Morphine 10 MG/ML VIAL (1 ml) IV PRN ×5 (03:56→20:39)
[2020-07-19 05:43] LABS: ABS Basophils 0.1 10^3/ul (0-0.2); ABS Eosinophils 0.3 10^3/ul (0-0.6); ABS Lymphocytes 1.2 10^3/ul (1.0-4.8); ABS Monocytes 0.8 10^3/ul (0-0.8); ABS Neutrophils 2.6 10^3/ul (1.5-7.7); Eosinophil % 6.2 %; Hematocrit 26 % (42-52); Hemoglobin 8.6 g/dL (14.0-18.0); Lymphocyte % 25.2 %; Mean Corpuscular HGB Conc 33 g/dL (31-36); Mean Corpuscular Hemoglobin 29 pg (27-31); Mean Corpuscular Volume 86 fL (80-94); Mean Platelet Volume 8.2 fL (7.4-10.4); Nucleated Red Blood Cells % 0.1; Platelet Count 318 10^3/uL (150-450); Red Cell Distribution Width 15 % (10-15); White Blood Count 4.9 10^3/uL (3.5-10.8)
[2020-07-19] MEDS: Senna TAB 8.6 mg TAB PO SCH (08:52)
[2020-07-19] MEDS: Iron Sucrose 200 MG in NS 0.9% 100 ml BAG 100 ML IVPB SCH (09:06)
[2020-07-19] MEDS: Saline FLUSH-CENTRAL 10 ML SYRINGE CENT\\PICC SCH ×2 (09:12→20:59)
[2020-07-19] MEDS: Enoxaparin 40 MG/0.4 ML SYR SUBCUT SCH (12:24)
[2020-07-19] MEDS ORDERED: Albuterol/Ipratropium NEB.SOL (2.5/0.5 MG) 3 ML NEB.SOLN INH PRN (16:40)
[2020-07-19] MEDS ORDERED: Butalb/Acetamin/Caff TAB 325-50-40MG PO PRN (19:10)
[2020-07-19] MEDS: CMCS:Desvenlafaxine 50 mg TAB (NF) PO SCH (20:43)
[2020-07-20] MEDS: Chlorhexidine MOUTHWASH 0.12% 15 ML UDC TOPICAL SCH ×4 (01:00→12:30)
[2020-07-20] MEDS: Morphine 10 MG/ML VIAL (1 ml) IV PRN ×2 (01:58→06:31)
[2020-07-20 06:31] LABS: Hematocrit 27 % (42-52); Mean Corpuscular HGB Conc 34 g/dL (31-36); Mean Corpuscular Hemoglobin 29 pg (27-31); Mean Corpuscular Volume 86 fL (80-94); Mean Platelet Volume 8.3 fL (7.4-10.4); Platelet Count 334 10^3/uL (150-450); Red Blood Count 3.08 10^6 /uL (4.18-5.48); Red Cell Distribution Width 15 % (10-15); White Blood Count 5.4 10^3/uL (3.5-10.8)
[2020-07-20] MEDS: Senna TAB 8.6 mg TAB PO SCH (08:57)
[2020-07-20] MEDS: Iron Sucrose 200 MG in NS 0.9% 100 ml BAG 100 ML IVPB SCH (09:04)
[2020-07-20] MEDS: Saline FLUSH-CENTRAL 10 ML SYRINGE CENT\\PICC SCH (09:09)
[2020-07-20] MEDS ORDERED: Morphine 10 MG/ML VIAL (1 ml) IV PRN (10:39)
[2020-07-20 11:14] VITALS: BP 97/54
[2020-07-20] MEDS: Enoxaparin 40 MG/0.4 ML SYR SUBCUT SCH (12:30)
[2020-07-20] MEDS: Ibuprofen ADULT LIQ 600 MG/30 ML UDC PO PRN (12:35)
[2020-07-20] MEDS ORDERED: Magic MouthWash1-BEN/MAAL/LIDO 180 ML BTL SWISH SWAL SCH (13:00)
== END 2020-07-20 15:00 | disposition swing bed (61) | DRG 5 ==
LOC: ED 23:52 → ICU 07-02 05:47 → SSU 07-09 23:45
PROVIDERS: ADMIT Internal Medicine Interventional Cardiology; ATTEND Student in an Organized Health Care Education/Training Program

== ENCOUNTER 2020-07-20 15:14 | Inpatient (IN) ==
[2020-07-20] MEDS ORDERED: Albuterol/Ipratropium NEB.SOL (2.5/0.5 MG) 3 ML NEB.SOLN INH PRN (17:23)
[2020-07-20] MEDS ORDERED: HYDROGEN PEROXIDE 3% TOPICAL PRN (17:23)
[2020-07-20] MEDS: Saline FLUSH-CENTRAL 10 ML SYRINGE CENT\\PICC SCH (18:11)
[2020-07-20] MEDS: Chlorhexidine MOUTHWASH 0.12% 15 ML UDC TOPICAL SCH ×2 (18:11→22:37)
[2020-07-20] MEDS: Morphine 10 MG/ML VIAL (1 ml) IV PRN (19:38)
[2020-07-20] MEDS: CMC:Desvenlafaxine 50 mg TAB (NF) PO SCH (21:24)
[2020-07-20] MEDS: Senna TAB 8.6 mg TAB PO SCH (21:24)
[2020-07-20] MEDS: Enoxaparin 40 MG/0.4 ML SYR SUBCUT SCH (21:26)
[2020-07-21] MEDS: Chlorhexidine MOUTHWASH 0.12% 15 ML UDC TOPICAL SCH ×6 (01:35→20:20)
[2020-07-21] MEDS: Morphine 10 MG/ML VIAL (1 ml) IV PRN ×3 (05:17→21:35)
[2020-07-21] MEDS: Saline FLUSH-CENTRAL 10 ML SYRINGE CENT\\PICC SCH ×2 (05:27→18:03)
[2020-07-21] MEDS: Ibuprofen ADULT LIQ 600 MG/30 ML UDC PO PRN ×2 (09:18→14:57)
[2020-07-21] MEDS: CMC:Desvenlafaxine 50 mg TAB (NF) PO SCH (20:12)
[2020-07-21] MEDS: Senna TAB 8.6 mg TAB PO SCH (20:14)
[2020-07-21] MEDS: Enoxaparin 40 MG/0.4 ML SYR SUBCUT SCH (20:15)
[2020-07-22] MEDS: Chlorhexidine MOUTHWASH 0.12% 15 ML UDC TOPICAL SCH ×6 (02:24→21:03)
[2020-07-22] MEDS: Morphine 10 MG/ML VIAL (1 ml) IV PRN ×5 (04:34→21:14)
[2020-07-22 04:54] LABS: Hematocrit 27 % (42-52); Hemoglobin 9.3 g/dL (14.0-18.0); Mean Corpuscular HGB Conc 34 g/dL (31-36); Mean Corpuscular Hemoglobin 29 pg (27-31); Mean Corpuscular Volume 85 fL (80-94); Mean Platelet Volume 8.1 fL (7.4-10.4); Platelet Count 354 10^3/uL (150-450); Red Cell Distribution Width 15 % (10-15); White Blood Count 5.3 10^3/uL (3.5-10.8)
[2020-07-22] MEDS: Saline FLUSH-CENTRAL 10 ML SYRINGE CENT\\PICC SCH ×2 (05:08→16:18)
[2020-07-22 05:17] LABS: Calcium 9.2 mg/dL (8.6-10.3); EGFR African American 137.6 (>60); EGFR Non-African American 113.7 (>60); Potassium 3.5 mmol/L (3.5-5.0)
[2020-07-22] MEDS: Ibuprofen ADULT LIQ 600 MG/30 ML UDC PO PRN ×2 (08:06→22:22)
[2020-07-22] MEDS: Senna TAB 8.6 mg TAB PO SCH (21:03)
[2020-07-22] MEDS: Enoxaparin 40 MG/0.4 ML SYR SUBCUT SCH (21:03)
[2020-07-22] MEDS: CMC:Desvenlafaxine 50 mg TAB (NF) PO SCH (21:04)
[2020-07-23] MEDS: Chlorhexidine MOUTHWASH 0.12% 15 ML UDC TOPICAL SCH ×6 (02:27→20:05)
[2020-07-23] MEDS: Saline FLUSH-CENTRAL 10 ML SYRINGE CENT\\PICC SCH ×2 (06:42→16:30)
[2020-07-23] MEDS: Butalb/Acetamin/Caff TAB 325-50-40MG PO PRN ×2 (09:15→15:41)
[2020-07-23] MEDS: Morphine 10 MG/ML VIAL (1 ml) IV PRN ×2 (09:16→16:22)
[2020-07-23] MEDS: Ibuprofen ADULT LIQ 600 MG/30 ML UDC PO PRN ×2 (12:05→22:56)
[2020-07-23] MEDS: Morphine ER 15 mg TAB ** extended release PO SCH (13:13)
[2020-07-23] MEDS: CMC:Desvenlafaxine 50 mg TAB (NF) PO SCH (19:56)
[2020-07-23] MEDS: Senna TAB 8.6 mg TAB PO SCH (20:01)
[2020-07-23] MEDS: Magnesium Hydroxide LIQ 30 ML UDC PO PRN (20:03)
[2020-07-23] MEDS: Enoxaparin 40 MG/0.4 ML SYR SUBCUT SCH (20:07)
[2020-07-24] MEDS: Morphine ER 15 mg TAB ** extended release PO SCH ×2 (00:38→13:17)
[2020-07-24] MEDS: Chlorhexidine MOUTHWASH 0.12% 15 ML UDC TOPICAL SCH ×6 (00:39→23:55)
[2020-07-24] MEDS: Morphine 10 MG/ML VIAL (1 ml) IV PRN ×5 (06:10→23:44)
[2020-07-24] MEDS: Saline FLUSH-CENTRAL 10 ML SYRINGE CENT\\PICC SCH ×2 (06:23→18:40)
[2020-07-24] MEDS: Butalb/Acetamin/Caff TAB 325-50-40MG PO PRN ×3 (09:19→22:56)
[2020-07-24] MEDS: CMC:Desvenlafaxine 50 mg TAB (NF) PO SCH (20:35)
[2020-07-24] MEDS: Senna TAB 8.6 mg TAB PO SCH (20:37)
[2020-07-24] MEDS: Enoxaparin 40 MG/0.4 ML SYR SUBCUT SCH (20:50)
[2020-07-24] MEDS: Ibuprofen ADULT LIQ 600 MG/30 ML UDC PO PRN (21:16)
[2020-07-25] MEDS: Morphine ER 15 mg TAB ** extended release PO SCH ×2 (03:04→12:55)
[2020-07-25] MEDS: Chlorhexidine MOUTHWASH 0.12% 15 ML UDC TOPICAL SCH ×6 (04:48→21:24)
[2020-07-25] MEDS: Morphine 10 MG/ML VIAL (1 ml) IV PRN ×3 (07:15→21:17)
[2020-07-25] MEDS: Butalb/Acetamin/Caff TAB 325-50-40MG PO PRN (07:21)
[2020-07-25] MEDS: Ibuprofen ADULT LIQ 600 MG/30 ML UDC PO PRN (08:43)
[2020-07-25] MEDS: Docusate LIQ 100 MG/10 ML UDC PO SCH ×2 (08:43→21:24)
[2020-07-25] MEDS: Saline FLUSH-CENTRAL 10 ML SYRINGE CENT\\PICC SCH ×2 (08:44→16:10)
[2020-07-25] MEDS: CMC:Desvenlafaxine 50 mg TAB (NF) PO SCH (21:20)
[2020-07-25] MEDS: Senna TAB 8.6 mg TAB PO SCH (21:22)
[2020-07-25] MEDS: Enoxaparin 40 MG/0.4 ML SYR SUBCUT SCH (21:24)
[2020-07-26] MEDS: Morphine ER 15 mg TAB ** extended release PO SCH ×2 (01:41→14:46)
[2020-07-26] MEDS: Chlorhexidine MOUTHWASH 0.12% 15 ML UDC TOPICAL SCH ×6 (01:41→21:12)
[2020-07-26] MEDS: Morphine 10 MG/ML VIAL (1 ml) IV PRN ×4 (05:21→20:41)
[2020-07-26] MEDS: Saline FLUSH-CENTRAL 10 ML SYRINGE CENT\\PICC SCH ×2 (05:22→19:09)
[2020-07-26] MEDS: Docusate LIQ 100 MG/10 ML UDC PO SCH ×2 (07:04→20:49)
[2020-07-26] MEDS: Butalb/Acetamin/Caff TAB 325-50-40MG PO PRN ×2 (07:05→20:53)
[2020-07-26] MEDS: Senna TAB 8.6 mg TAB PO SCH (21:20)
[2020-07-26] MEDS: Enoxaparin 40 MG/0.4 ML SYR SUBCUT SCH (21:24)
[2020-07-27] MEDS: Morphine 10 MG/ML VIAL (1 ml) IV PRN ×5 (03:00→21:04)
[2020-07-27] MEDS: Morphine ER 15 mg TAB ** extended release PO SCH ×2 (03:00→12:23)
[2020-07-27] MEDS: Chlorhexidine MOUTHWASH 0.12% 15 ML UDC TOPICAL SCH ×6 (05:14→20:23)
[2020-07-27] MEDS: Saline FLUSH-CENTRAL 10 ML SYRINGE CENT\\PICC SCH ×2 (07:43→16:33)
[2020-07-27 09:33] LABS: Hematocrit 31 % (42-52); Mean Corpuscular HGB Conc 33 g/dL (31-36); Mean Corpuscular Hemoglobin 28 pg (27-31); Mean Corpuscular Volume 87 fL (80-94); Mean Platelet Volume 7.9 fL (7.4-10.4); Platelet Count 317 10^3/uL (150-450); Red Blood Count 3.54 10^6 /uL (4.18-5.48); Red Cell Distribution Width 16 % (10-15); White Blood Count 6.8 10^3/uL (3.5-10.8)
[2020-07-27 09:51] LABS: Calcium 9.3 mg/dL (8.6-10.3); EGFR African American 129.4 (>60); EGFR Non-African American 106.9 (>60); Potassium 3.6 mmol/L (3.5-5.0)
[2020-07-27] MEDS: Butalb/Acetamin/Caff TAB 325-50-40MG PO PRN ×2 (10:14→21:07)
[2020-07-27] MEDS: Docusate LIQ 100 MG/10 ML UDC PO SCH ×2 (10:16→20:26)
[2020-07-27] MEDS: Senna TAB 8.6 mg TAB PO SCH (20:25)
[2020-07-27] MEDS: Enoxaparin 40 MG/0.4 ML SYR SUBCUT SCH (21:06)
[2020-07-28] MEDS: Morphine ER 15 mg TAB ** extended release PO SCH ×2 (01:33→13:41)
[2020-07-28] MEDS: Chlorhexidine MOUTHWASH 0.12% 15 ML UDC TOPICAL SCH ×6 (02:12→20:42)
[2020-07-28] MEDS: Morphine 10 MG/ML VIAL (1 ml) IV PRN ×4 (04:04→22:25)
[2020-07-28] MEDS: Saline FLUSH-CENTRAL 10 ML SYRINGE CENT\\PICC SCH ×2 (05:59→18:22)
[2020-07-28] MEDS: Docusate LIQ 100 MG/10 ML UDC PO SCH ×2 (10:41→20:42)
[2020-07-28] MEDS: Magnesium Hydroxide LIQ 30 ML UDC PO PRN (10:52)
[2020-07-28] MEDS: Butalb/Acetamin/Caff TAB 325-50-40MG PO PRN (18:21)
[2020-07-28] MEDS: Enoxaparin 40 MG/0.4 ML SYR SUBCUT SCH (20:42)
[2020-07-28] MEDS: Senna TAB 8.6 mg TAB PO SCH (20:43)
[2020-07-28] MEDS: Ibuprofen ADULT LIQ 600 MG/30 ML UDC PO PRN (22:24)
[2020-07-29] MEDS: Morphine ER 15 mg TAB ** extended release PO SCH ×2 (00:56→13:55)
[2020-07-29] MEDS: Chlorhexidine MOUTHWASH 0.12% 15 ML UDC TOPICAL SCH ×6 (02:08→19:45)
[2020-07-29] MEDS: Morphine 10 MG/ML VIAL (1 ml) IV PRN ×5 (04:51→22:26)
[2020-07-29] MEDS: Saline FLUSH-CENTRAL 10 ML SYRINGE CENT\\PICC SCH ×2 (04:52→18:11)
[2020-07-29] MEDS: Butalb/Acetamin/Caff TAB 325-50-40MG PO PRN ×2 (06:32→19:46)
[2020-07-29] MEDS: Docusate LIQ 100 MG/10 ML UDC PO SCH ×2 (09:06→19:44)
[2020-07-29] MEDS: Enoxaparin 40 MG/0.4 ML SYR SUBCUT SCH (19:44)
[2020-07-29] MEDS: Senna TAB 8.6 mg TAB PO SCH (19:46)
[2020-07-29] MEDS ORDERED: Lidocaine 2.5%/Prilocain 2.5% 5 GM TUBE TOPICAL PRN (22:50)
[2020-07-30] MEDS: Chlorhexidine MOUTHWASH 0.12% 15 ML UDC TOPICAL SCH ×7 (00:39→21:46)
[2020-07-30] MEDS: Morphine ER 15 mg TAB ** extended release PO SCH ×2 (00:48→12:52)
[2020-07-30] MEDS: Morphine 10 MG/ML VIAL (1 ml) IV PRN ×5 (02:53→19:47)
[2020-07-30] MEDS: Saline FLUSH-CENTRAL 10 ML SYRINGE CENT\\PICC SCH ×2 (05:55→18:33)
[2020-07-30] MEDS: Docusate LIQ 100 MG/10 ML UDC PO SCH ×2 (07:57→21:34)
[2020-07-30] MEDS: Enoxaparin 40 MG/0.4 ML SYR SUBCUT SCH (21:35)
[2020-07-30] MEDS: Senna TAB 8.6 mg TAB PO SCH (21:36)
[2020-07-31] MEDS: Morphine 10 MG/ML VIAL (1 ml) IV PRN ×6 (00:59→22:44)
[2020-07-31] MEDS: Morphine ER 15 mg TAB ** extended release PO SCH ×2 (01:00→13:04)
[2020-07-31] MEDS: Chlorhexidine MOUTHWASH 0.12% 15 ML UDC TOPICAL SCH ×6 (03:41→20:03)
[2020-07-31] MEDS: Saline FLUSH-CENTRAL 10 ML SYRINGE CENT\\PICC SCH ×2 (06:06→18:36)
[2020-07-31] MEDS: Docusate LIQ 100 MG/10 ML UDC PO SCH ×2 (08:26→20:03)
[2020-07-31] MEDS: Senna TAB 8.6 mg TAB PO SCH (20:09)
[2020-07-31] MEDS: Enoxaparin 40 MG/0.4 ML SYR SUBCUT SCH (20:09)
[2020-08-01] MEDS: Magic MouthWash2-BEN/MAAL/LIDO/NYST 240 ML BTL (alt formulation) SWISH SWAL SCH ×4 (00:39→15:49)
[2020-08-01] MEDS: Morphine 10 MG/ML VIAL (1 ml) IV PRN ×6 (02:33→21:16)
[2020-08-01] MEDS: Magnesium Hydroxide LIQ 30 ML UDC PO PRN ×2 (02:40→19:57)
[2020-08-01] MEDS: Chlorhexidine MOUTHWASH 0.12% 15 ML UDC TOPICAL SCH ×5 (04:22→17:20)
[2020-08-01] MEDS: Morphine ER 15 mg TAB ** extended release PO SCH ×2 (04:22→12:56)
[2020-08-01] MEDS: Saline FLUSH-CENTRAL 10 ML SYRINGE CENT\\PICC SCH ×2 (04:24→17:21)
[2020-08-01] MEDS: Docusate LIQ 100 MG/10 ML UDC PO SCH ×2 (09:16→19:58)
[2020-08-01] MEDS: Butalb/Acetamin/Caff TAB 325-50-40MG PO PRN (10:05)
[2020-08-01] MEDS ORDERED: Simethicone SUSP ORALSYR 66.66 MG/ML PO PRN (13:38)
[2020-08-01] MEDS: Senna TAB 8.6 mg TAB PO SCH (19:56)
[2020-08-01] MEDS: Enoxaparin 40 MG/0.4 ML SYR SUBCUT SCH (20:05)
[2020-08-02] MEDS: Chlorhexidine MOUTHWASH 0.12% 15 ML UDC TOPICAL SCH ×7 (01:34→22:37)
[2020-08-02] MEDS: Magic MouthWash2-BEN/MAAL/LIDO/NYST 240 ML BTL (alt formulation) SWISH SWAL SCH ×5 (01:34→19:50)
[2020-08-02] MEDS: Morphine ER 15 mg TAB ** extended release PO SCH ×2 (04:43→13:26)
[2020-08-02] MEDS: Morphine 10 MG/ML VIAL (1 ml) IV PRN ×5 (05:35→21:45)
[2020-08-02] MEDS: Saline FLUSH-CENTRAL 10 ML SYRINGE CENT\\PICC SCH ×2 (07:52→17:30)
[2020-08-02] MEDS: Docusate LIQ 100 MG/10 ML UDC PO SCH ×2 (09:25→19:47)
[2020-08-02] MEDS: Enoxaparin 40 MG/0.4 ML SYR SUBCUT SCH (19:49)
[2020-08-02] MEDS: Senna TAB 8.6 mg TAB PO SCH (19:49)
[2020-08-03] MEDS: Morphine ER 15 mg TAB ** extended release PO SCH ×3 (01:01→20:17)
[2020-08-03] MEDS: Chlorhexidine MOUTHWASH 0.12% 15 ML UDC TOPICAL SCH ×6 (01:59→19:59)
[2020-08-03] MEDS: Morphine 10 MG/ML VIAL (1 ml) IV PRN ×4 (03:03→15:36)
[2020-08-03] MEDS: Saline FLUSH-CENTRAL 10 ML SYRINGE CENT\\PICC SCH ×2 (05:21→16:33)
[2020-08-03] MEDS: Magic MouthWash2-BEN/MAAL/LIDO/NYST 240 ML BTL (alt formulation) SWISH SWAL SCH ×4 (07:11→20:07)
[2020-08-03] MEDS: Docusate LIQ 100 MG/10 ML UDC PO SCH ×2 (07:50→20:16)
[2020-08-03] MEDS ORDERED: Morphine 10 MG/ML VIAL (1 ml) IV PRN (17:32)
[2020-08-03] MEDS: Enoxaparin 40 MG/0.4 ML SYR SUBCUT SCH (20:16)
[2020-08-03] MEDS: Senna TAB 8.6 mg TAB PO SCH (20:17)
[2020-08-04] MEDS: Chlorhexidine MOUTHWASH 0.12% 15 ML UDC TOPICAL SCH ×6 (00:24→21:22)
[2020-08-04] MEDS: Saline FLUSH-CENTRAL 10 ML SYRINGE CENT\\PICC SCH ×2 (05:32→16:00)
[2020-08-04] MEDS: Butalb/Acetamin/Caff TAB 325-50-40MG PO PRN (08:26)
[2020-08-04] MEDS: Docusate LIQ 100 MG/10 ML UDC PO SCH ×2 (08:26→20:37)
[2020-08-04] MEDS: oxyCODONE 5 mg/5 ml ORAL.SOLN UDC PO SCH ×3 (08:26→17:03)
[2020-08-04] MEDS: Magic MouthWash2-BEN/MAAL/LIDO/NYST 240 ML BTL (alt formulation) SWISH SWAL SCH ×4 (08:27→20:37)
[2020-08-04] MEDS: Morphine ER 15 mg TAB ** extended release PO SCH ×2 (11:40→20:37)
[2020-08-04] MEDS: Enoxaparin 40 MG/0.4 ML SYR SUBCUT SCH (20:37)
[2020-08-04] MEDS: Senna TAB 8.6 mg TAB PO SCH (20:37)
[2020-08-05] MEDS: Chlorhexidine MOUTHWASH 0.12% 15 ML UDC TOPICAL SCH ×6 (02:20→21:35)
[2020-08-05] MEDS: Saline FLUSH-CENTRAL 10 ML SYRINGE CENT\\PICC SCH ×2 (06:39→17:31)
[2020-08-05] MEDS: oxyCODONE 5 mg/5 ml ORAL.SOLN UDC PO SCH ×3 (08:58→16:01)
[2020-08-05] MEDS: Morphine ER 15 mg TAB ** extended release PO SCH ×2 (08:59→20:34)
[2020-08-05] MEDS: Docusate LIQ 100 MG/10 ML UDC PO SCH ×2 (09:00→20:32)
[2020-08-05] MEDS: Magic MouthWash2-BEN/MAAL/LIDO/NYST 240 ML BTL (alt formulation) SWISH SWAL SCH ×4 (09:01→20:35)
[2020-08-05] MEDS: Enoxaparin 40 MG/0.4 ML SYR SUBCUT SCH (20:32)
[2020-08-05] MEDS: Senna TAB 8.6 mg TAB PO SCH (20:33)
[2020-08-06] MEDS: Chlorhexidine MOUTHWASH 0.12% 15 ML UDC TOPICAL SCH ×6 (01:02→21:08)
[2020-08-06] MEDS: Saline FLUSH-CENTRAL 10 ML SYRINGE CENT\\PICC SCH ×2 (05:17→16:57)
[2020-08-06] MEDS: Docusate LIQ 100 MG/10 ML UDC PO SCH ×2 (07:50→21:06)
[2020-08-06] MEDS: oxyCODONE 5 mg/5 ml ORAL.SOLN UDC PO SCH ×3 (07:50→16:57)
[2020-08-06] MEDS: Magic MouthWash2-BEN/MAAL/LIDO/NYST 240 ML BTL (alt formulation) SWISH SWAL SCH ×6 (07:52→21:08)
[2020-08-06] MEDS: Morphine ER 15 mg TAB ** extended release PO SCH ×2 (08:58→20:59)
[2020-08-06] MEDS: Senna TAB 8.6 mg TAB PO SCH (20:57)
[2020-08-06] MEDS: Enoxaparin 40 MG/0.4 ML SYR SUBCUT SCH (20:58)
[2020-08-07] MEDS: Chlorhexidine MOUTHWASH 0.12% 15 ML UDC TOPICAL SCH ×6 (02:03→21:37)
[2020-08-07] MEDS: Saline FLUSH-CENTRAL 10 ML SYRINGE CENT\\PICC SCH ×2 (04:58→17:53)
[2020-08-07] MEDS: oxyCODONE 5 mg/5 ml ORAL.SOLN UDC PO SCH ×3 (07:29→16:40)
[2020-08-07] MEDS: Docusate LIQ 100 MG/10 ML UDC PO SCH ×2 (09:06→21:35)
[2020-08-07] MEDS: Morphine ER 15 mg TAB ** extended release PO SCH ×2 (09:07→21:23)
[2020-08-07] MEDS: Magic MouthWash2-BEN/MAAL/LIDO/NYST 240 ML BTL (alt formulation) SWISH SWAL SCH ×4 (09:18→21:40)
[2020-08-07] MEDS: Senna TAB 8.6 mg TAB PO SCH (21:22)
[2020-08-07] MEDS: Enoxaparin 40 MG/0.4 ML SYR SUBCUT SCH (21:37)
[2020-08-08] MEDS: Chlorhexidine MOUTHWASH 0.12% 15 ML UDC TOPICAL SCH ×5 (01:23→17:37)
[2020-08-08] MEDS: Saline FLUSH-CENTRAL 10 ML SYRINGE CENT\\PICC SCH ×2 (05:27→17:36)
[2020-08-08] MEDS: oxyCODONE 5 mg/5 ml ORAL.SOLN UDC PO SCH ×3 (08:37→16:51)
[2020-08-08] MEDS: Morphine ER 15 mg TAB ** extended release PO SCH ×2 (08:41→20:28)
[2020-08-08] MEDS: Docusate LIQ 100 MG/10 ML UDC PO SCH ×2 (08:42→20:25)
[2020-08-08] MEDS: Magic MouthWash2-BEN/MAAL/LIDO/NYST 240 ML BTL (alt formulation) SWISH SWAL SCH ×4 (08:53→20:29)
[2020-08-08] MEDS: Senna TAB 8.6 mg TAB PO SCH (20:24)
[2020-08-08] MEDS: Enoxaparin 40 MG/0.4 ML SYR SUBCUT SCH (20:25)
[2020-08-09] MEDS: Chlorhexidine MOUTHWASH 0.12% 15 ML UDC TOPICAL SCH ×6 (02:03→21:09)
[2020-08-09] MEDS: Ibuprofen ADULT LIQ 600 MG/30 ML UDC PO PRN (02:09)
[2020-08-09] MEDS: Saline FLUSH-CENTRAL 10 ML SYRINGE CENT\\PICC SCH ×2 (07:47→16:48)
[2020-08-09] MEDS: oxyCODONE 5 mg/5 ml ORAL.SOLN UDC PO SCH ×3 (08:26→16:21)
[2020-08-09] MEDS: Morphine ER 15 mg TAB ** extended release PO SCH ×2 (08:31→20:38)
[2020-08-09] MEDS: Docusate LIQ 100 MG/10 ML UDC PO SCH ×2 (08:55→20:40)
[2020-08-09] MEDS: Magic MouthWash2-BEN/MAAL/LIDO/NYST 240 ML BTL (alt formulation) SWISH SWAL SCH ×4 (08:58→20:49)
[2020-08-09] MEDS: Senna TAB 8.6 mg TAB PO SCH (20:39)
[2020-08-09] MEDS: Enoxaparin 40 MG/0.4 ML SYR SUBCUT SCH (20:46)
[2020-08-10] MEDS: Chlorhexidine MOUTHWASH 0.12% 15 ML UDC TOPICAL SCH ×5 (01:42→22:19)
[2020-08-10] MEDS: Saline FLUSH-CENTRAL 10 ML SYRINGE CENT\\PICC SCH ×2 (05:10→16:43)
[2020-08-10] MEDS: Docusate LIQ 100 MG/10 ML UDC PO SCH ×2 (08:24→22:40)
[2020-08-10] MEDS: Magic MouthWash2-BEN/MAAL/LIDO/NYST 240 ML BTL (alt formulation) SWISH SWAL SCH ×4 (08:27→22:41)
[2020-08-10] MEDS: oxyCODONE 5 mg/5 ml ORAL.SOLN UDC PO SCH ×3 (11:10→16:49)
[2020-08-10] MEDS: Butalb/Acetamin/Caff TAB 325-50-40MG PO PRN (12:01)
[2020-08-10] MEDS: Senna TAB 8.6 mg TAB PO SCH (22:33)
[2020-08-10] MEDS: Enoxaparin 40 MG/0.4 ML SYR SUBCUT SCH (22:40)
[2020-08-11] MEDS: Chlorhexidine MOUTHWASH 0.12% 15 ML UDC TOPICAL SCH ×6 (00:16→23:56)
[2020-08-11] MEDS: Docusate LIQ 100 MG/10 ML UDC PO SCH ×2 (10:16→22:15)
[2020-08-11] MEDS: Saline FLUSH-CENTRAL 10 ML SYRINGE CENT\\PICC SCH ×2 (10:35→19:57)
[2020-08-11] MEDS: Magic MouthWash2-BEN/MAAL/LIDO/NYST 240 ML BTL (alt formulation) SWISH SWAL SCH ×4 (10:35→22:52)
[2020-08-11] MEDS: Nicotine PATCH 21 MG/24 HR PATCH TRANSDERM SCH (18:15)
[2020-08-11] MEDS: Senna TAB 8.6 mg TAB PO SCH (22:15)
[2020-08-11] MEDS: Butalb/Acetamin/Caff TAB 325-50-40MG PO PRN (22:18)
[2020-08-11] MEDS: Enoxaparin 40 MG/0.4 ML SYR SUBCUT SCH (22:43)
[2020-08-12] MEDS: Chlorhexidine MOUTHWASH 0.12% 15 ML UDC TOPICAL SCH ×6 (03:46→21:36)
[2020-08-12] MEDS: Saline FLUSH-CENTRAL 10 ML SYRINGE CENT\\PICC SCH ×2 (07:46→16:26)
[2020-08-12] MEDS: Docusate LIQ 100 MG/10 ML UDC PO SCH ×2 (10:31→21:20)
[2020-08-12] MEDS: Nicotine PATCH 21 MG/24 HR PATCH TRANSDERM SCH (10:31)
[2020-08-12] MEDS: Magic MouthWash2-BEN/MAAL/LIDO/NYST 240 ML BTL (alt formulation) SWISH SWAL SCH ×5 (10:32→21:33)
[2020-08-12] MEDS: Enoxaparin 40 MG/0.4 ML SYR SUBCUT SCH (21:29)
[2020-08-12] MEDS: Senna TAB 8.6 mg TAB PO SCH (21:36)
[2020-08-13] MEDS: Chlorhexidine MOUTHWASH 0.12% 15 ML UDC TOPICAL SCH ×6 (04:07→22:04)
[2020-08-13] MEDS: Saline FLUSH-CENTRAL 10 ML SYRINGE CENT\\PICC SCH ×2 (09:17→18:04)
[2020-08-13] MEDS: Docusate LIQ 100 MG/10 ML UDC PO SCH ×3 (09:19→22:02)
[2020-08-13] MEDS: Magic MouthWash2-BEN/MAAL/LIDO/NYST 240 ML BTL (alt formulation) SWISH SWAL SCH ×4 (09:19→22:05)
[2020-08-13] MEDS: Nicotine PATCH 21 MG/24 HR PATCH TRANSDERM SCH (09:21)
[2020-08-13] MEDS: Butalb/Acetamin/Caff TAB 325-50-40MG PO PRN (16:32)
[2020-08-13] MEDS: Enoxaparin 40 MG/0.4 ML SYR SUBCUT SCH (22:02)
[2020-08-13] MEDS: Senna TAB 8.6 mg TAB PO SCH (22:04)
[2020-08-14] MEDS: Chlorhexidine MOUTHWASH 0.12% 15 ML UDC TOPICAL SCH ×6 (00:47→20:28)
[2020-08-14] MEDS: Saline FLUSH-CENTRAL 10 ML SYRINGE CENT\\PICC SCH ×2 (10:49→17:48)
[2020-08-14] MEDS: Nicotine PATCH 21 MG/24 HR PATCH TRANSDERM SCH (10:49)
[2020-08-14] MEDS: Magic MouthWash2-BEN/MAAL/LIDO/NYST 240 ML BTL (alt formulation) SWISH SWAL SCH ×4 (10:50→20:27)
[2020-08-14] MEDS: Docusate LIQ 100 MG/10 ML UDC PO SCH ×2 (10:59→20:27)
[2020-08-14] MEDS: Butalb/Acetamin/Caff TAB 325-50-40MG PO PRN (20:38)
[2020-08-14] MEDS: Enoxaparin 40 MG/0.4 ML SYR SUBCUT SCH (20:38)
[2020-08-14] MEDS: Senna TAB 8.6 mg TAB PO SCH (20:40)
[2020-08-15] MEDS: Chlorhexidine MOUTHWASH 0.12% 15 ML UDC TOPICAL SCH ×6 (02:34→20:32)
[2020-08-15] MEDS: Saline FLUSH-CENTRAL 10 ML SYRINGE CENT\\PICC SCH ×2 (06:25→17:37)
[2020-08-15] MEDS ORDERED: Polyethylene Glycol 3350 17 GM PACKET PO PRN (09:23)
[2020-08-15] MEDS: Nicotine PATCH 21 MG/24 HR PATCH TRANSDERM SCH (10:17)
[2020-08-15] MEDS: Magic MouthWash2-BEN/MAAL/LIDO/NYST 240 ML BTL (alt formulation) SWISH SWAL SCH ×5 (10:18→20:21)
[2020-08-15] MEDS: Docusate LIQ 100 MG/10 ML UDC PO SCH ×2 (10:22→20:11)
[2020-08-15] MEDS: Senna TAB 8.6 mg TAB PO SCH (20:12)
[2020-08-15] MEDS: Enoxaparin 40 MG/0.4 ML SYR SUBCUT SCH (20:13)
[2020-08-16] MEDS: Chlorhexidine MOUTHWASH 0.12% 15 ML UDC TOPICAL SCH ×4 (02:10→13:31)
[2020-08-16] MEDS: Saline FLUSH-CENTRAL 10 ML SYRINGE CENT\\PICC SCH (06:26)
[2020-08-16] MEDS: Nicotine PATCH 21 MG/24 HR PATCH TRANSDERM SCH (09:15)
[2020-08-16] MEDS: Magic MouthWash2-BEN/MAAL/LIDO/NYST 240 ML BTL (alt formulation) SWISH SWAL SCH ×2 (09:15→13:30)
[2020-08-16] MEDS: Docusate LIQ 100 MG/10 ML UDC PO SCH (09:15)
[2020-08-16] MEDS: Ibuprofen ADULT LIQ 600 MG/30 ML UDC PO PRN (11:31)
[2020-08-16 16:01] VITALS: BP 139/84
== END 2020-08-16 14:50 | disposition home health service (06) | DRG 133 ==
LOC: SSU 15:14 → MED 07-23 15:32
PROVIDERS: ADMIT Student in an Organized Health Care Education/Training Program; ATTEND Student in an Organized Health Care Education/Training Program

== ENCOUNTER 2022-01-02 15:45 | Inpatient (IN) ==
[2022-01-02 16:42] LABS: ABS Basophils 0.1 10^3/ul (0-0.2); ABS Lymphocytes 1.5 10^3/ul (1.0-4.8); ABS Monocytes 0.5 10^3/ul (0-0.8); ABS Neutrophils 4.5 10^3/ul (1.5-7.7); Eosinophil % 0.5 %; Hematocrit 37 % (42-52); Hemoglobin 11.8 g/dL (14.0-18.0); Lymphocyte % 22.8 %; Mean Corpuscular HGB Conc 32 g/dL (31-36); Mean Corpuscular Hemoglobin 27 pg (27-31); Mean Corpuscular Volume 83 fL (80-94); Mean Platelet Volume 8.7 fL (7.4-10.4); Nucleated Red Blood Cells % 0.1; Platelet Count 301 10^3/uL (150-450); Red Blood Count 4.39 10^6 /uL (4.18-5.48); Red Cell Distribution Width 15 % (10-15); White Blood Count 6.6 10^3/uL (3.5-10.8)
[2022-01-02 17:04] LABS: ALT 17 U/L (7-52); Albumin 4.1 g/dL (3.2-5.2); Albumin/Globulin Ratio 1.2 (1-3); Alcohol, S < 13 mg/dL (<13); Alkaline Phosphatase 205 U/L (35-149); Blood Urea Nitrogen 18 mg/dL (6-24); C Reactive Protein 38.09 mg/L (<8.01); CO2 Carbon Dioxide 22 mmol/L (22-32); Chloride 104 mmol/L (101-111); Globulin 3.3 g/dL (2-4); Glucose 104 mg/dL (70-100); Magnesium 1.9 mg/dL (1.9-2.7); Sodium 140 mmol/L (135-145); Total Protein 7.4 g/dL (6.4-8.9); eGFR CKD-EPI 86.9 (>60)
[2022-01-02] MEDS ORDERED: Haloperidol 5 mg/ml SDV IV/IM 5 MG/ML AMP IV SLOW PU ONE (17:16)
[2022-01-02] MEDS ORDERED: Haloperidol 5 mg/ml SDV IV/IM 5 MG/ML AMP ONE (17:17)
[2022-01-02 17:23] LABS: Anion Gap 14 mmol/L (2-11)
[2022-01-02 17:45] LABS: High Sens Troponin Baseline 4 pg/mL (<20)
[2022-01-02] MEDS ORDERED: LORazepam 2 mg VIAL 1 ml IV PUSH ONE ×2 (18:00→19:44)
[2022-01-02] MEDS ORDERED: Lorazepam PYXIS KEY PRN ×2 (18:00→19:44)
[2022-01-02 18:19] LABS: AST Redraw 26 U/L (13-39); Potassium Redraw 3.6 mmol/L (3.5-5.0)
[2022-01-02 18:24] LABS: Phosphorus < 1.0 mg/dL (2.5-5.0)
[2022-01-02] MEDS ORDERED: Potassium Phosphate IV 10 MMOLE in NS 0.9% 250 ml 250 ML IVPB ONE (18:26)
[2022-01-02 18:37] LABS: High Sensitivity Troponin 3 Hr 5 pg/mL (<20)
[2022-01-02] MEDS ORDERED: Ondansetron 4 mg VIAL 2 MG/ML 2 ml VIAL IV PRN (22:28)
[2022-01-03] MEDS: Enoxaparin 40 MG/0.4 ML SYR SUBCUT SCH ×2 (00:38→21:59)
[2022-01-03 02:02] LABS: Blood Urea Nitrogen 18 mg/dL (6-24); CO2 Carbon Dioxide 25 mmol/L (22-32); Calcium 9.7 mg/dL (8.6-10.3); Chloride 106 mmol/L (101-111); Glucose 88 mg/dL (70-100); Sodium 145 mmol/L (135-145)
[2022-01-03 02:06] LABS: Anion Gap 14 mmol/L (2-11)
[2022-01-03 04:16] LABS: ABS Basophils 0.1 10^3/ul (0-0.2); ABS Eosinophils 0.2 10^3/ul (0-0.6); ABS Lymphocytes 1.5 10^3/ul (1.0-4.8); ABS Monocytes 0.5 10^3/ul (0-0.8); ABS Neutrophils 2.6 10^3/ul (1.5-7.7); Eosinophil % 3.2 %; Hematocrit 34 % (42-52); Hemoglobin 11.1 g/dL (14.0-18.0); Lymphocyte % 32.2 %; Mean Corpuscular HGB Conc 33 g/dL (31-36); Mean Corpuscular Hemoglobin 27 pg (27-31); Mean Corpuscular Volume 83 fL (80-94); Mean Platelet Volume 8.4 fL (7.4-10.4); Platelet Count 251 10^3/uL (150-450); Red Blood Count 4.09 10^6 /uL (4.18-5.48); Red Cell Distribution Width 15 % (10-15); White Blood Count 4.8 10^3/uL (3.5-10.8)
[2022-01-03 05:02] LABS: Albumin 3.8 g/dL (3.2-5.2); Albumin/Globulin Ratio 1.2 (1-3); Calcium 9.4 mg/dL (8.6-10.3); Globulin 3.3 g/dL (2-4); Magnesium 1.9 mg/dL (1.9-2.7); Potassium 3.4 mmol/L (3.5-5.0); Total Bilirubin 0.5 mg/dL (0.2-1.0); Total Protein 7.1 g/dL (6.4-8.9); eGFR CKD-EPI 82.2 (>60)
[2022-01-03 05:22] LABS: Phosphorus 2.2 mg/dL (2.5-5.0)
[2022-01-03] MEDS: Venlafaxine 25 mg TAB (NF) PO SCH ×3 (10:17→21:40)
[2022-01-03] MEDS: Chlorhexidine MOUTHWASH 0.12% 15 ML UDC TOPICAL SCH ×2 (10:35→21:42)
[2022-01-03 12:51] LABS: Folate 14.48 ng/mL (5.90-24.80)
[2022-01-03 18:55] LABS: Urine Appearance Clear; Urine Bilirubin Negative (Negative); Urine Blood Negative (Negative); Urine Color Amber; Urine Glucose Negative (Negative); Urine Ketones Trace (Negative); Urine Nitrite Negative (Negative); Urine Protein 2+(100 mg/dL) (Negative); Urine Specific Gravity 1.029 (1.002-1.030); Urine Urobilinogen Positive (Negative)
[2022-01-03 19:01] LABS: Urine Bacteria Absent (Absent); Urine Red Blood Cell 1+(3-5/hpf) (Absent); Urine Sperm Present (Absent); Urine White Blood Cell Trace(0-5/hpf) (Absent)
[2022-01-03 19:50] LABS: Urine Benzodiazepine Screen None Detected (None Detect); Urine Cannabinoids Screen Presumptive Positive (None Detect); Urine Opiates Screen None Detected (None Detect)
[2022-01-04 07:40] LABS: ABS Basophils 0.2 10^3/ul (0-0.2); ABS Eosinophils 0.3 10^3/ul (0-0.6); ABS Lymphocytes 1.6 10^3/ul (1.0-4.8); ABS Monocytes 0.4 10^3/ul (0-0.8); ABS Neutrophils 1.6 10^3/ul (1.5-7.7); Hematocrit 35 % (42-52); Hemoglobin 11.1 g/dL (14.0-18.0); Lymphocyte % 39.6 %; Mean Corpuscular HGB Conc 32 g/dL (31-36); Mean Corpuscular Hemoglobin 27 pg (27-31); Mean Corpuscular Volume 84 fL (80-94); Mean Platelet Volume 8.1 fL (7.4-10.4); Platelet Count 230 10^3/uL (150-450); Red Blood Count 4.18 10^6 /uL (4.18-5.48); Red Cell Distribution Width 15 % (10-15); White Blood Count 4.1 10^3/uL (3.5-10.8)
[2022-01-04 08:11] LABS: Albumin 3.6 g/dL (3.2-5.2); Albumin/Globulin Ratio 1.2 (1-3); Calcium 9.2 mg/dL (8.6-10.3); Globulin 3.1 g/dL (2-4); Potassium 3.2 mmol/L (3.5-5.0); Total Bilirubin 0.4 mg/dL (0.2-1.0); Total Protein 6.7 g/dL (6.4-8.9); eGFR CKD-EPI 93.4 (>60)
[2022-01-04] MEDS: Venlafaxine 25 mg TAB (NF) PO SCH ×3 (10:01→20:20)
[2022-01-04] MEDS: Chlorhexidine MOUTHWASH 0.12% 15 ML UDC TOPICAL SCH ×2 (10:01→20:24)
[2022-01-04] MEDS: KCL 20 MEQ/100 ML IVPREMIX 20 MEQ/100 ML BAG IV SCH ×2 (14:15→19:07)
[2022-01-04] MEDS ORDERED: Potassium Chloride LIQUID 20 MEQ/15 ML LIQUID PO ONE (18:57)
[2022-01-04] MEDS: Enoxaparin 40 MG/0.4 ML SYR SUBCUT SCH (21:39)
[2022-01-05 07:50] LABS: ABS Eosinophils 0.4 10^3/ul (0-0.6); ABS Lymphocytes 1.9 10^3/ul (1.0-4.8); ABS Monocytes 0.4 10^3/ul (0-0.8); ABS Neutrophils 1.5 10^3/ul (1.5-7.7); Eosinophil % 10.1 %; Hematocrit 37 % (42-52); Hemoglobin 11.7 g/dL (14.0-18.0); Lymphocyte % 45.8 %; Mean Corpuscular HGB Conc 32 g/dL (31-36); Mean Corpuscular Hemoglobin 27 pg (27-31); Mean Corpuscular Volume 85 fL (80-94); Mean Platelet Volume 8.6 fL (7.4-10.4); Platelet Count 234 10^3/uL (150-450); Red Blood Count 4.31 10^6 /uL (4.18-5.48); Red Cell Distribution Width 15 % (10-15); White Blood Count 4.2 10^3/uL (3.5-10.8)
[2022-01-05 08:38] LABS: Calcium 9.3 mg/dL (8.6-10.3); Potassium 4.2 mmol/L (3.5-5.0); eGFR CKD-EPI 85.9 (>60)
[2022-01-05 09:03] LABS: Phosphorus 3.1 mg/dL (2.5-5.0)
[2022-01-05] MEDS: Venlafaxine 25 mg TAB (NF) PO SCH (09:27)
[2022-01-05] MEDS: Chlorhexidine MOUTHWASH 0.12% 15 ML UDC TOPICAL SCH (10:15)
[2022-01-05 11:23] VITALS: BP 172/94
== END 2022-01-05 13:00 | disposition home or self-care (01) | DRG 642 ==
LOC: ED 15:45 → EDHOLD 15:45 → SUATTDRO 22:28 → MED 01-03 01:58
PROVIDERS: ADMIT Internal Medicine; ATTEND Internal Medicine